=== PATIENT | male | born 1950 | race Hispanic/Latino ===

== ENCOUNTER 2024-01-19 21:33 | Inpatient (IN) | payer OTHER, SELFPAY ==
[2024-01-19] VITALS (14 sets, daily range): BP systolic 112–215; BP diastolic 59–140
[2024-01-19 18:46] LABS: % Basophils 0.5 % (0-2); % Eosinophils 2.5 % (0-6); % Immature Granulocytes 0.5 % (0-0.5); % Lymphocytes 14.5 % (20.5-51.1); Absolute Eosinophils 0.2 10^3/uL (0-0.7); Absolute Lymphocytes 1.2 10^3/uL (1.2-3.4); Absolute Monocytes 0.8 10^3/uL (0.1-0.6); Absolute Neutrophils 6.1 10^3/uL (1.4-6.5); Hematocrit 34.4 % (39.0-52.0); Hemoglobin 11.2 g/dL (13.0-18.0); Mean Corp Hgb Conc. 32.6 g/dL (33.0-37.0); Mean Corpuscular Hgb 27.5 pg (27.0-31.0); Mean Corpuscular Volume 84.5 fL (80.0-94.0); Mean Platelet Volume 9.2 fL (7.4-10.4); Nucleated Red Blood Cells % 0 % (-); Platelet Count 263 10^3/uL (130-400); Red Blood Cell Count 4.07 10^6/uL (4.70-6.10); Red Cell Dist. Width 14.9 % (11.5-14.5); White Blood Cell Count 8.3 10^3/uL (4.8-10.8)
[2024-01-19 18:56] LABS: INR 1.07; PT 13.7 Sec (11.4-14.6)
[2024-01-19 18:59] LABS: ALT (SGPT) 26 U/L (0-50); AST (SGOT) 31 U/L (17-59); Albumin 3.1 g/dl (3.5-5.0); Alkaline Phosphatase 127 U/L (38-126); Blood Urea Nitrogen 21 mg/dl (9-20); Calcium 8.2 mg/dl (8.4-10.2); Carbon Dioxide 27 mmol/L (22-30); Chloride 109 mmol/L (98-107); Glucose 195 mg/dl (70-99); Potassium 4.2 mmol/L (3.5-5.1); Sodium 138 mmol/L (135-145); Total Bilirubin 0.3 mg/dl (0.2-1.3); Total Protein 6.7 g/dl (6.3-8.2); eGFR > 60.00
[2024-01-19] MEDS: LASIX 40 MG IV (19:09)
[2024-01-19] MEDS: NITROSTAT (SUBLINGUAL) 0.400000000000000022 MG SL (19:09)
[2024-01-19 19:10] LABS: Troponin I 0.017 ng/ml
[2024-01-19] MEDS: NITROGLYCERIN PREMIX 250 IV (19:56)
[2024-01-19 20:03] LABS: NT-proBNP 201 pg/ml
--- NOTE | 2024-01-19 21:19 | ED.GENMED ---
History of Present Illness
General
Chief Complaint: Abdominal Pain
Source: patient and physician (Primary physician)
Exam Limitations: none
Time Seen by Provider: 01/19/24 18:32
Nursing documentation reviewed up to this point in time: agreed with
Travel History
Have you had any contact with someone who has COVID-19?: No
Do you have any symptoms of coronavirus? Fever > 100 degrees, chills, cough, shortness of breath, sore throat, loss of taste or smell, muscle aches, or headache?: No
History of Present Illness
History of Present Illness:
73-year-old male with past medical history of hypertension, hyperlipidemia, SIMONE, diabetes who presents to the emergency room for evaluation of shortness of breath, orthopnea also had an episode of chest pain last week. Patient reports that he has
had ongoing significant dyspnea and orthopnea for at least the past few weeks. He says that it has progressed to the point that he has to sit upright to sleep at night due to severe orthopnea. He says that he has to rest after walking short
distances due to his dyspnea. He says that he has had nagging cough. He has noticed swelling of his legs. He says that last week he had an episode of chest discomfort that started rather abruptly�he says he initially was seen at an urgent care
and was told that it might be muscular pain. He then followed up with his primary doctor who was concerned for potential cardiac pain. With the constellation of symptoms and new onset chest pain last week primary physician recommended that he go
to the emergency room for assessment today. He currently denies any chest pain. He has noticed increased swelling in his legs. He has not had any fevers or chills. No GI symptoms. He denies any known cardiac history and says he has never seen a
global sales executive. Denies any recent travel. No history of DVT/PE.
Past History
Past History
ED Past Medical History: None, Cancer, HTN, Hypercholesterolemia and NIDDM
ED Past Surgical History: Orthopedic
Social History
Tobacco: Non-smoker
Alcohol: None
Personal:
Living: with family
Employment: Employed
Family History
Family History: Hypertension
Review of Systems
Review of Systems
All Other Systems: ROS reviewed and negative except as documented in HPI and ROS
Constitutional: Reports fatigue; Denies fever or chills
EENT: Denies sore throat or runny nose
Respiratory: Reports cough, trouble breathing and other (Orthopnea)
Cardiac: Reports chest pain; Denies diaphoresis or palpitations
ABD/GI: Denies abdominal pain, nausea or vomiting
: Denies flank pain
Musculoskeletal: Reports edema; Denies neck pain or back pain
Neurological: Denies dizzy, weakness or numbness
Phy Exam
Physical Exam
Physical Exam:
General: Awake, alert, oriented x3; no acute distress
Head: Normocephalic, atraumatic
Eyes: Conjunctiva normal, sclera anicteric
Throat: Airway intact, handling secretions
Neck: Trachea midline, +JVD
Lungs: Patient has tachypnea, speaking in 4-5 word sentences, sitting upright in the bed; supple pulse ox on room air; he has diffuse bilateral rales
Heart: Regular rate and rhythm, no murmurs, gallops, or rubs
Abd: Soft, non distended, nontender
Neuro: Cranial nerves grossly intact, no gross motor or sensory deficits
Extremities: +2 pitting edema in the lower extremities bilaterally; distal extremities warm well-perfused
Scores
Heart Failure Risk
Heart Failure Risk Score: Yes
History of Stroke or TIA: No
History of intubation for respiratory distress: No
Heart rate on ED arrival >/= 110: No
SaO2 <90% on arrival on room air: No
HR >/=110 during 3min walk test (or too ill to perform test): Yes
ECG has acute ischemic changes: No
Urea >/=12mmol/L (BUN 33.6mg/dL): No
Serum CO2>/=35mmol/L: No
Troponin I or T elevated to [place] Level (0.4mg/dL): No
NT-proBNP >/=5,000ng/L (5,000pg/ml): No
HF Risk Score: 2
Admission Status: MEDIUM RISK 9.2% Consider observation or discharge to home with homecare & f/u visit to PCP/Paradichlorobenzene Tender, or SNF for treatment
Heart Score for Chest Pain Patients
STEMI patient?: Not applicable
Withdrawal Assessment of Alcohol
Withdrawal Assessment Completed?: Not applicable
Course
Orders/Labs/Results
Orders:
Orders
01/19/24 17:54
Electrocardiogram (*1) Urgent
Reason for Study: Chest Pain
EKG- Treatment ONCE
01/19/24 18:36
Complete Blood Count/With Diff Urgent
Comprehensive Metabolic Panel Urgent
NT-proBNP Urgent
Comment: ADD ON
Prothrombin Time Urgent
Troponin I Urgent
01/19/24 18:53
Furosemide [Lasix] 40 mg IV NOW STA
Nitroglycerin Sublingual [Nitrostat (Sublingual)] 0.4 mg SL NOW STA
CR Chest Portable - 1 View Urgent
Comment:
Reason For Exam: SOB, orthopnea
Reason Study Needs to be Portable: Unable to Transport
01/19/24 18:59
Add On- LAB Urgent
Tests Added?: bnp
01/19/24 19:47
Nitroglycerin 100 mg/250 ml [Nitroglycerin Premix] 100 mg in 250 ml IV NOW
Initial dose in mcg/min, then titrate:: 5
Titrate to keep:: SBP < 160 mmHg
Titrate by mcg/min:: 5 mcg/min, may increase by 10 mcg/min if dose > 20 mcg/min
Frequency of titrations (minutes):: every 3-5 minutes
Maximum dose in mcg/min:: 200
Begin to taper infusion when:: Remained at goal for 2hrs
Taper by mcg/min:: 5 mcg/min
Frequency of taper (minutes) if patient maintains goal:: 30
Taper to off?: Yes
If infusion off & no longer maintaining goal:: Contact Provider
Abnormal Lab Results
01/19/24
18:36
RBC 4.07 L 10^6/uL
(4.70-6.10)
Hgb 11.2 L g/dL
(13.0-18.0)
Hct 34.4 L %
(39.0-52.0)
MCHC 32.6 L g/dL
(33.0-37.0)
RDW 14.9 H %
(11.5-14.5)
Absolute Monos (auto) 0.8 H 10^3/uL
(0.1-0.6)
Lymphocytes % 14.5 L %
(20.5-51.1)
Chloride 109 H mmol/L
(98-107)
BUN 21 H mg/dl
(9-20)
Glucose 195 H mg/dl
(70-99)
Calcium 8.2 L mg/dl
(8.4-10.2)
Alkaline Phosphatase 127 H U/L
(38-126)
Albumin 3.1 L g/dl
(3.5-5.0)
01/19/24 18:36
01/19/24 18:36
Vital Signs
Initial and Last Documented VS:
Initial Vital Signs
Temp Pulse Resp BP Pulse Ox
36.9 C 72 16 177/85 98
01/19/24 17:55 01/19/24 17:55 01/19/24 17:55 01/19/24 17:55 01/19/24 17:55
Last Documented Vital Signs
Temp Pulse Resp BP Pulse Ox
36.9 C 78 21 134/65 92
01/19/24 17:55 01/19/24 20:40 01/19/24 19:30 01/19/24 20:40 01/19/24 19:45
MDM/Problems Addressed
Differential Diagnosis Includes:
CHF exacerbation, pneumonia, acute [place], chronic bronchitis, symptomatic anemia
MDM/Problems Addressed:
73-year-old male presents for evaluation of progressive exertional dyspnea and orthopnea, increasing swelling in the legs; sudden episode of nonexertional chest pain last week. Hypertensive on arrival with mild tachypnea otherwise normal vitals.
Physical exam as above. Clinical picture concerning for acute CHF. Plan to place an IV send labs including a CBC and a CMP, troponin and a BNP. Will check a stat chest x-ray and EKG. Will treat with some nitroglycerin for severe hypertension to
start. Will monitor closely reassess after the above.
Initial labs reviewed: CBC shows marginal anemia which is stable. CMP shows random glucose 195 no other clinically significant abnormalities. Troponin negative. proBNP only 201 but patient has morbid obesity which might cause falsely low BNP�his
chest x-ray reviewed by me shows findings consistent with acute CHF and pulmonary edema. Patient remains severely hypertensive to the 190s despite initial nitroglycerin�will start on nitroglycerin infusion for blood pressure control. Will dose
with IV Lasix. Will admit to the hospitalist for continued management. Case discussed with hospitalist for admission for new onset acute CHF and severe hypertension.
Chronic conditions affecting care:
Hypertension, diabetes, hyperlipidemia, obesity
Acute Exacerbation and/or Progression of Chronic Illness:
Acutely hypertensive managed with nitroglycerin
Acute Exacerbation and/or Progression of Chronic Illness: HTN
*Radiology
Radiology exam reviewed: preliminary read by ED provider and radiology read reviewed
*Pulse Oximetry
Patient hypoxic: no
*EKG
Interpreted by ED Provider?: Yes
Heart Rate: 75
Rate: normal
Rhythm: sinus
[place]: right axis deviation
Interval: normal interval
QRS Pattern: left bundle branch block
Ischemia: non-specific ST changes
*Critical Care Note
Total Time (30-74mins, 75-104mins- exclusive of procedures): Not Applicable
Data Reviewed
Review of Other/Old Records Reveals: Labs, Records, Radiology Studies (Prior chest x-ray) and Discharge Summary
Source: patient and physician (Spoke with PCP)
Patient Management
Discussion with other providers: Hospitalist (Discussed with hospitalist), PCP (Discussed with primary physician) and Radiologist (Discussed with radiologist)
Escalation/DeEscalation of care consider admission/obs:
Admission indicated
ED Attending Note
-
Portions of this chart may have been created with voice recognition software.� Occasional wrong word or��sound alike� substitutions may have occurred due to the inherent limitations of voice recognition software.
Discharge Plan
Departure
Patient Disposition: Admit
Date of Disposition: 01/19/24
Time of Disposition: 19:47
Admit to doctor: Mykel
Presentation/result/management discussed w/ accepting MD/DO: Hospitalist
Discharge Problem:
Acute CHF, Hypertension
Prescriptions:
No Action
hydrochlorothiazide 25 MG tablet
25 mg PO DAILY
lisinopril 40 MG tablet
40 mg PO DAILY
atorvastatin 10 MG tablet
10 mg PO QPM
amlodipine 10 MG tablet
10 mg PO DAILY
metformin 500 MG tablet extended release 24 hr
1,000 mg PO HS
latanoprost 1 DROP drops
1 drp BOTH EYES HS
acetaminophen [Tylenol] 325 mg Tablet
650 mg PO Q6HPRN PRN (Reason: mild pain)
cyanocobalamin (vitamin B-12) 1,000 mcg Tablet
1,000 mcg PO DAILY
Referrals:
Macho Gao MD [Family Provider] -
Interventions
Interventions:
*Risk Screen - Suicide Last Done: 01/19/24 17:55
*Neglect/Abuse Screening Last Done: 01/19/24 17:55
ED- Fall Risk Assessment Last Done: 01/19/24 17:55
*ED COVID-19 Vaccine History Last Done: 01/19/24 17:55
[place]-Keijff-Prgrbujeyd Assessment Last Done: 01/19/24 19:07
Discharge Date and Time
Print Language: SLOVAK
--- NOTE | 2024-01-19 21:27 | HPS.HSE ---
Family Physician
-
Family Physician: Macho Gao
Chief Complaint
-
shortness of breath
History of Present Illness
73-year-old Bengali-speaking male past medical history of diabetes, peripheral neuropathy, hypertension, hyperlipidemia, obesity, prostate cancer status post resection, spinal stenosis, gout, presenting with shortness of breath. He states that he
has had shortness of breath for years however shortness of breath has gotten worse in the past few weeks. Shortness of breath is worse with exertion and when he lies down flat. He has also gained more than 20 pounds recently and has increased
lower extreme edema. He has a productive cough. He denies any fevers or chills.
He states that he saw a physician last week for chest pain and was told the chest pain was musculoskeletal. He denies any chest pain at this time. He denies any history of cardiac problems.
Denies any family history of cardiac problems.
He drinks 1-2 beers a week. He denies smoking.
Medical History
Past Medical History
Past Medical History: Reports Other (diabetes, peripheral neuropathy, hypertension, hyperlipidemia, obesity, prostate cancer status post resection, spinal stenosis, gout,)
Past Surgical History: Reports Other (Right finger amputation, prostate surgery)
Social History
Tobacco: Non-smoker
Alcohol: Occasional
Drug: None
Family History
Family History: Not pertinent
Allergies / Home Medications
Allergies reflects when Allergies were last updated in [facility].
Home Medications with original date entered in [facility]
Allergy/Medication List:
Allergies
Allergy/AdvReac Type Severity Reaction Status Date / Time
No Known Allergies Allergy Verified 01/19/24 17:53
Home Medications
hydrochlorothiazide 25 mg tablet 25 mg PO DAILY Fluid retention/Swelling 07/01/14
lisinopril 40 mg tablet 40 mg PO DAILY Blood pressure 07/01/14
amlodipine 10 mg tablet 10 mg PO DAILY Blood pressure 11/29/18
atorvastatin 10 mg tablet 10 mg PO QPM High cholesterol 11/29/18
metformin 500 mg tablet,extended release 24 hr 1,000 mg PO HS Diabetes 11/29/18
latanoprost 0.005 % eye drops 1 drp BOTH EYES HS Eye condition 08/24/20
acetaminophen 325 mg tablet (Tylenol) 650 mg PO Q6HPRN PRN mild pain 01/19/24
cyanocobalamin (vitamin B-12) 1,000 mcg tablet 1,000 mcg PO DAILY 01/19/24
Review of Systems
-
History Source: Patient
A 12 point ROS was completed and negative except as noted: Yes
Constitutional: Reports No Symptoms
EENT: Reports No Symptoms
Respiratory: Reports See HPI
Cardiac: Reports See HPI
Abdomen/GI: Reports No Symptoms
: Reports No Symptoms
Musculoskeletal: Reports No Symptoms
Skin: Reports No Symptoms
Neurological: Reports No Symptoms
Endocrine: Reports No Symptoms
Hematologic/Lymphatic: Reports No Symptoms
Psych: Reports No Symptoms
Physical Exam
Vital Signs
Vital Signs
Temp Pulse Resp BP Pulse Ox
98.5 F 78 21 134/65 92
01/19/24 17:55 01/19/24 20:40 01/19/24 19:30 01/19/24 20:40 01/19/24 19:45
Physical Exam
General: Well Developed, Well Nourished and No Apparent Distress
HEENT: NormoCephalic, Moist mucous membranes and Atraumatic
Respiratory: Clear and Rales
Cardiac: S1/S2, Regular Rhythm and Peripheral Edema; No Murmur or Rub
GI: Soft, Non Tender, Non Distended and Normal Bowel Sounds; No Organomegaly
Rectal: Deferred by Provider
Musculoskeletal: No Clubbing, No Cyanosis and No Edema
Skin: No Rash
Neuro: Nonfocal/grossly intact
Laboratory Results
-
01/19/24 18:36
01/19/24 18:36
Laboratory Results
PT 13.7 Sec (11.4-14.6) 01/19/24 18:36
INR 1.07 01/19/24 18:36
Total Bilirubin 0.3 mg/dl (0.2-1.3) 01/19/24 18:36
AST 31 U/L (17-59) 01/19/24 18:36
ALT 26 U/L (0-50) 01/19/24 18:36
Alkaline Phosphatase 127 U/L (38-126) H 01/19/24 18:36
Troponin I 0.017 ng/ml 01/19/24 18:36
Data Reviewed
-
Lab Data: Labs Reviewed by me
Old Records: Reviewed
Impression/Plan
-
IMPRESSION:
PLAN:
# Acute CHF exacerbation
-Chest x-ray shows cardiomegaly, vague increased opacity in both lungs most consistent with interstitial edema consistent with heart failure
-BNP 200, suppressed due to obesity
-Check I's and O's, daily weights
-40 IV Lasix daily
-Check echo
-Cardiology consulted
# Hypertensive emergency, in the setting of heart failure
-EKG shows normal sinus rhythm, LVH
-Nitroglycerin drip started
-continue amlodipine, HCTZ, lisinopril
# Nonischemic myocardial injury
-Troponin 0.017
-Continue to trend until peak
Type 2 diabetes
-continue metformin
-Insulin sliding scale
History of right fingertip amputation
Peripheral neuropathy
Essential hypertension
Obesity secondary to excess calories
History of prostate cancer status post resection
Hyperlipidemia
Spinal stenosis
Full code
DVT prophylaxis- heparin
Cardiac diet
[2024-01-19] MEDS: XALATAN OPHTHALMIC SOLUTION 1 DROP BOTH EYES (22:45)
[2024-01-19] MEDS: GLUCOPHAGE XR EXTENDED RELEASE 1000 MG PO (22:59)
[2024-01-19 23:08] LABS: Troponin I 0.017 ng/ml
--- NOTE | 2024-01-19 23:08 | PTCARENOTE ---
no delay received. aaox3. nsr. vss. niece at bedside interpreting. nitro gtt @ 20mcg/min. call riley in reach. will monitor.
[2024-01-20] VITALS (14 sets, daily range): BP systolic 132–161; BP diastolic 52–81; BMI 41.6
[2024-01-20 04:32] LABS: % Basophils 0.4 % (0-2); % Eosinophils 2.6 % (0-6); % Immature Granulocytes 0.7 % (0-0.5); % Lymphocytes 15.9 % (20.5-51.1); % Monocytes 9.3 % (1.7-9.3); % Neutrophils 71.1 % (42.2-75.2); Absolute Eosinophils 0.2 10^3/uL (0-0.7); Absolute Immature Granulocytes 0.1 10^3/uL (0-0.05); Absolute Lymphocytes 1.4 10^3/uL (1.2-3.4); Absolute Monocytes 0.8 10^3/uL (0.1-0.6); Absolute Neutrophils 6.4 10^3/uL (1.4-6.5); Hematocrit 33.4 % (39.0-52.0); Hemoglobin 10.8 g/dL (13.0-18.0); Mean Corp Hgb Conc. 32.3 g/dL (33.0-37.0); Mean Corpuscular Hgb 27.3 pg (27.0-31.0); Mean Corpuscular Volume 84.6 fL (80.0-94.0); Mean Platelet Volume 9.2 fL (7.4-10.4); Nucleated Red Blood Cells % 0 % (-); Platelet Count 254 10^3/uL (130-400); Red Blood Cell Count 3.95 10^6/uL (4.70-6.10); Red Cell Dist. Width 14.6 % (11.5-14.5)
[2024-01-20 04:44] LABS: HDL Cholesterol 42 mg/dl; LDL Cholesterol, Calculated 81 mg/dl; Total Cholesterol 144 mg/dl (50-199); Triglyceride 107 mg/dl (10-149); Very Low Density Lipoprotein 21 mg/dl (0-30)
[2024-01-20 04:56] LABS: Troponin I 0.016 ng/ml
[2024-01-20] MEDS: TYLENOL 650 MG PO (06:13)
[2024-01-20] MEDS: ORETIC 25 MG PO (08:04)
[2024-01-20] MEDS: ZESTRIL 40 MG PO (08:04)
[2024-01-20] MEDS: VITAMIN B-12 1000 MCG PO (08:04)
[2024-01-20] MEDS: NORVASC 10 MG PO (08:04)
[2024-01-20] MEDS: HEPARIN 5000 UNITS SC ×2 (08:05→21:38)
[2024-01-20] MEDS: LASIX 40 MG IV ×2 (08:05→17:12)
[2024-01-20 08:18] LABS: Glucose - Point of Care 152 mg/dl (70-99)
--- NOTE | 2024-01-20 08:39 | CON.CAR ---
Addendum entered and electronically signed by Meredith Naik MD 01/20/24 12:31:
I saw and examined the patient.
The Geography Instructor's note was reviewed and I agree with the note.
Comment: Exam consistent with volume overload. He denies chest pain but has dyspnea on exertion.
He presented with acute heart failure of unknown type. Continue diuresis. Await echocardiogram.
EKG abnormal but stable. Troponin 0.022. Multiple cardiovascular risk factors including uncontrolled diabetes.
Continue diuresis
Await echocardiogram
Eventual right and left heart catheterization
Reassess troponin
Diabetes per primary service
Addendum entered and electronically signed by Charleen De Oliveira PA-C 01/20/24 12:12:
called and updated patient's daughter, Jennifer via telephone.
Original Note:
Consultation
Consultation Request
Date/Time Consultation Performed: 01/20/24
Requesting Provider: Dr. Lucero
Performing Provider: Charleen De Oliveira PA-C for Dr. Meredith Naik
Reason for Consultation: CHF, CP
Medical History
-
Chief Complaint: SOB, CP
History of Present Illness:
Patient is a 73 yo Thai speaking male with past medical history of prediabetes, hypertension, hyperlipidemia, peripheral neuropathy, obesity, prostate cancer status postresection who presents to [facility] for evaluation of shortness of
breath and chest discomfort. He was referred here by his primary care physician due to his symptoms. He states his symptoms all started after he had COVID approximately a year ago however acutely worsened over the last several weeks. He
specifically reports orthopnea with improvement with sitting up to sleep. He reports lower extremity edema and weight gain as well as cough. He denies fevers or chills. He denies exertional chest discomfort, however pressure with coughing and
shortness of breath.
PMH:
Prediabetes
HTN
HLD
Peripheral neuropathy
Obesity
Prostate cancer status post resection
Past Medical History
Past Medical History: Other (in HPI)
Social History
Tobacco: Non-Smoker
Alcohol: Occasional
Employment: Not Employed
Allergies / Home Medications
Allergy/AdvReac Type Severity Reaction Status Date / Time
No Known Allergies Allergy Verified 01/19/24 17:53
�Medication �Instructions �Recorded �Confirmed �Type
hydrochlorothiazide 25 mg tablet 25 mg PO DAILY Fluid 07/01/14 01/19/24 History
retention/Swelling
lisinopril 40 mg tablet 40 mg PO DAILY Blood pressure 07/01/14 01/19/24 History
amlodipine 10 mg tablet 10 mg PO DAILY Blood pressure 11/29/18 01/19/24 History
atorvastatin 10 mg tablet 10 mg PO QPM High cholesterol 11/29/18 01/19/24 History
metformin 500 mg tablet,extended 1,000 mg PO HS Diabetes 11/29/18 01/19/24 History
release 24 hr
latanoprost 0.005 % eye drops 1 drp BOTH EYES HS Eye condition 08/24/20 01/19/24 History
acetaminophen 325 mg tablet 650 mg PO Q6HPRN PRN mild pain 01/19/24 01/19/24 History
(Tylenol)
cyanocobalamin (vitamin B-12) 1,000 mcg PO DAILY 01/19/24 01/19/24 History
1,000 mcg tablet
Review of Systems
-
History Source: Patient
All other systems: Negative unless noted
Physical Exam
Vital Signs
Temp Pulse Resp BP Pulse Ox
98.5 F 68 18 146/65 98
01/20/24 07:02 01/20/24 08:04 01/20/24 07:02 01/20/24 08:04 01/20/24 07:02
Lab Results
01/20/24 04:20
Troponin I 0.016 ng/ml 01/20/24 04:20
Lgj-E-Plariomkhsm Pept Cancelled 01/19/24 18:52
Physical Exam
General: No Apparent Distress and Comfortable
HEENT: Normocephalic, Anicteric and Moist Mucous Membranes
Respiratory: Wheezes and Non Labored Respirations
Cardiac: S1/S2 and Regular Rhythm
GI: Soft, Non Tender, Normal Bowel Sounds and Distended
Musculoskeletal: No Clubbing, No Cyanosis and Edema (3+ of B/L LE)
Skin: Warm and Dry
Neuro: AO x 3
Impression / Plan
-
Primary Ore Smelter: none
Assessment:
Presentation with SOB, CP
Acute CHF, unknown type
Abnormal EKG
History of prediabetes, now diabetic by hgbA1c 9.8 on 01/19
HTN
HLD
Peripheral neuropathy
Obesity
Prostate cancer status post resection
Plan:
-Patient is a Thai-speaking male who presents to [facility] for evaluation of shortness of breath and chest pain, worsening over the last several weeks
-He is noted to be grossly volume overloaded in acute decompensated congestive heart failure even though proBNP 201. CXR with evidence of CHF as well
-Diuresis with IV Lasix - stop OP HCTZ and increase lasix dose to 40mg BID
-Cr stable
-check echo
-although trops are detectable but within normal range, his EKG is abnormal with inferior T wave abnormality. will need L/RHC when optimized from volume standpoint
-with 10 beat run of NSVT overnight. will initiate toprol 25mg daily. replete K. mag stable. continue OP lisinopril and norvasc
-LDL 81 on lipitor 10mg QPM, will increase dose to 20mg
-further recommendations based on results of echo/cath
-He has a history of prediabetes. By hemoglobin A1c this admission he is now diabetic at 9.8%. Consult diabetic education. For both CHF and diabetes, would plan to add Jardiance if cost affordable, will have case management assess cost
-d/w nursing
Data Reviewed
-
EKG: Tracing Personally Visualized and interpreted
Radiology: Report Reviewed by me
Labs: Labs Reviewed by me
Old Records: Reviewed
[2024-01-20 09:09] LABS: Glycohemoglobin (HgbA1c) 9.8 % (4.0-5.6)
[2024-01-20] MEDS: NOVOLOG FLEXPEN-LOW RESISTANCE 1 UNITS SC (09:12)
[2024-01-20 09:14] LABS: Blood Urea Nitrogen 19 mg/dl (9-20); Calcium 8.5 mg/dl (8.4-10.2); Carbon Dioxide 26 mmol/L (22-30); Chloride 109 mmol/L (98-107); Glucose 136 mg/dl (70-99); Magnesium 2.3 mg/dl (1.6-2.3); Potassium 3.8 mmol/L (3.5-5.1); Sodium 138 mmol/L (135-145); eGFR > 60.00
[2024-01-20] MEDS: KCL 20 MEQ PO (11:05)
[2024-01-20] MEDS: TOPROL XL 25 MG PO (11:06)
--- NOTE | 2024-01-20 11:11 | PTCARENOTE ---
Pt received from night clerk auditor RN. Ox3 and appropriate, Italian speaking only. NSR on tele, + pulses, +2 LE edema. Pt states he feels as though he cannot catch his breath, orthopneic. Breathing much improved after morning Lasix. Pt using urinal,
complains of frequency and difficulty using urinal which he often misses. Ate 100% of breakfast. Pt complaining of generalized body pain with numbness/ tingling in the legs. This improved after receiving tylenol. Call riley within reach. Pt makes
needs known.
--- NOTE | 2024-01-20 11:16 | W.PN.HOSP.TC ---
Today's Communication/Plan
-
Ultrasound of the lower extremity
Increase metformin to 1000 mg twice daily
Add 50 mg Januvia
Check pricing for SGLT2 inhibitors
Diuresis
Echo
May need heart catheterization minute
Assessment / Plan
Assessment / Plan
73-year-old male presented to [facility] because of shortness of breath and chest discomfort. He also has had bilateral lower extremity edema and weight gain
On examination awake alert
Has pain in the legs and also mild shortness of breath with ambulation.
Cardiovascular system S1-S2 appreciated
Chest decreased breath sounds, few rales
Bilateral lower extremity edema pitting-4+
# Acute CHF
Type unclear-check echo
T inversions in the EKG and also nonsustained VT
Continue diuresis with IV Lasix
Lower extremity Dopplers to rule out DVT
Beta-jin started
Follow electrolytes and replace as needed
Continue lisinopril.
Cardiology evaluation appreciated
# Diabetes-hemoglobin A1c 9.8
Continue metformin, add SGLT2 inhibitors if covered
Add Januvia
Increase metformin to thousand twice daily-if ejection fraction is very low may need to stop this completely and switch to insulin.
Diabetic education, dietary education
Weight loss will also help
# Bhftydvusvlc-uxnq-[id number] and lisinopril to be continued
Stop amlodipine if possible with edema.
Off nitroglycerin drip
# Nonischemic myocardial injury
# Hyperlipidemia-continue statin
# Anemia-check iron studies
# Sleep apnea Suspected. Patient may need to get sleep study as outpatient
# History of prostate cancer status post resection
# Glaucoma-continue latanoprost eyedrops
# Obesity
# History of right fingertip amputation.Peripheral neuropathy
# Spinal stenosis
# DVT prophylaxis-Lovenox
# Full code
Discussed with nursing
Anticipated Discharge: > 48 hours
Subjective/Interval History
-
Date of Service: January 20, 2024
Objective Data
-
Labs:
Laboratory Results
01/20/24 01/20/24
04:20 08:01
WBC 9.0
Hgb 10.8 L
Hct 33.4 L
Plt Count 254
Sodium 138
Potassium 3.8
Chloride 109 H
Carbon Dioxide 26
BUN 19
Creatinine 0.8
Glucose 136 H
Calcium 8.5
Vital Signs:
Vital Signs
Temp Pulse Resp BP Pulse Ox
98.5 F 78 18 142/69 98
01/20/24 07:02 01/20/24 11:06 01/20/24 07:02 01/20/24 11:06 01/20/24 10:51
I&O
01/19/24 01/20/24 01/21/24
06:59 06:59 06:59
Output Total 625 / 625
Balance -625 / -625
[2024-01-20 11:32] LABS: Glucose - Point of Care 230 mg/dl (70-99)
[2024-01-20] MEDS: NOVOLOG FLEXPEN-LOW RESISTANCE 3 UNITS SC (12:00)
[2024-01-20 12:08] LABS: Troponin I 0.022 ng/ml
[2024-01-20 12:09] LABS: Iron 45 ug/dl (49-181)
[2024-01-20 12:18] LABS: Percent Saturation 14 % (20-50); Total Iron Binding Capacity 308 ug/dl (261-462)
[2024-01-20] MEDS: JANUVIA 50 MG PO (13:38)
[2024-01-20 14:00] LABS: Ferritin 88.2 ng/ml (17.9-464.0)
[2024-01-20 14:15] LABS: Vitamin B12 > 1000 pg/ml (239-931)
[2024-01-20] MEDS: NOVOLOG FLEXPEN-LOW RESISTANCE SC (17:12)
[2024-01-20] MEDS: LIPITOR 20 MG PO (17:12)
[2024-01-20 17:13] LABS: Glucose - Point of Care 130 mg/dl (70-99)
[2024-01-20 17:45] LABS: Troponin I 0.015 ng/ml
[2024-01-20] MEDS: GLUCOPHAGE XR EXTENDED RELEASE 1000 MG PO (21:38)
[2024-01-20] MEDS: XALATAN OPHTHALMIC SOLUTION 1 DROP BOTH EYES (21:38)
[2024-01-20 21:39] LABS: Glucose - Point of Care 163 mg/dl (70-99)
[2024-01-21] VITALS (7 sets, daily range): BP systolic 108–154; BP diastolic 48–71; BMI 40.4
--- NOTE | 2024-01-21 01:21 | PTCARENOTE ---
Patient ambulating self in room. Appears FREDERICK and tachypnea at times. Lungs w/ crackles in bases and sating 96-97% RA. Tele monitor remains SR, HR in the 60-70s. Denies any pain. Bilateral lower extremity w/ +3 pitting edema. CHF packet given in pts
primary language. This RN instructed pt to void in either urinal or hat in bathroom for accurate output. Pt nodded head and stated 'ok'. Call riley in reach.
[2024-01-21 03:38] LABS: Hematocrit 35.6 % (39.0-52.0); Hemoglobin 11.7 g/dL (13.0-18.0); Mean Corp Hgb Conc. 32.9 g/dL (33.0-37.0); Mean Corpuscular Hgb 27.4 pg (27.0-31.0); Mean Corpuscular Volume 83.4 fL (80.0-94.0); Platelet Count 275 10^3/uL (130-400); Red Blood Cell Count 4.27 10^6/uL (4.70-6.10); Red Cell Dist. Width 14.9 % (11.5-14.5); White Blood Cell Count 9.5 10^3/uL (4.8-10.8)
[2024-01-21 04:00] LABS: Blood Urea Nitrogen 26 mg/dl (9-20); Calcium 8.7 mg/dl (8.4-10.2); Carbon Dioxide 29 mmol/L (22-30); Chloride 103 mmol/L (98-107); Estimated Creatinine Clearance 77 ml/min; Glucose 126 mg/dl (70-99); Potassium 3.8 mmol/L (3.5-5.1); Sodium 137 mmol/L (135-145); eGFR > 60.00
[2024-01-21 08:45] LABS: Glucose - Point of Care 117 mg/dl (70-99)
[2024-01-21] MEDS: NOVOLOG FLEXPEN-LOW RESISTANCE SC ×2 (08:46→16:56)
[2024-01-21] MEDS: NORVASC 10 MG PO (08:46)
[2024-01-21] MEDS: VITAMIN B-12 1000 MCG PO (08:46)
[2024-01-21] MEDS: ZESTRIL 40 MG PO (08:47)
[2024-01-21] MEDS: JANUVIA 50 MG PO (08:47)
[2024-01-21] MEDS: HEPARIN 5000 UNITS SC ×2 (08:47→20:33)
[2024-01-21] MEDS: GLUCOPHAGE XR EXTENDED RELEASE 1000 MG PO ×2 (08:47→21:39)
[2024-01-21] MEDS: LASIX 40 MG IV ×3 (08:48→17:01)
[2024-01-21] MEDS: TOPROL XL 25 MG PO (08:48)
[2024-01-21] MEDS: FEOSOL 325 MG PO (08:48)
--- NOTE | 2024-01-21 09:53 | W.PN.HOSP.TC ---
Today's Communication/Plan
-
Wolfgang bandages to lower extremity
Diuresis
Assessment / Plan
Assessment / Plan
73-year-old male presented to [facility] because of shortness of breath and chest discomfort. He also has had bilateral lower extremity edema and weight gain
On examination awake alert
Has pain in the legs and also mild shortness of breath with ambulation.
Cardiovascular system S1-S2 appreciated
Chest decreased breath sounds, few rales
Bilateral lower extremity edema pitting-4+
Has a friend at bedside patient wants him to translate
# Acute CHF
Type unclear-check echo
T inversions in the EKG and also nonsustained VT
Continue diuresis with IV Lasix
Lower extremity Dopplers no DVT
Beta-jin started
Follow electrolytes and replace as needed
Continue lisinopril.
Cardiology evaluation appreciated
Weight is coming down
# Diabetes-hemoglobin A1c 9.8
Continue metformin, add SGLT2 inhibitors if covered
Added Januvia
Increased metformin to thousand twice daily-if ejection fraction is very low may need to stop this completely and switch to insulin.
Diabetic education, dietary education
Weight loss will also help
# Cxseyneisnvl-gecw-ebpdqrj and lisinopril to be continued
Stop amlodipine if possible with edema.
Off nitroglycerin drip
# Nonischemic myocardial injury
# Hyperlipidemia-continue statin
# Anemia-mild iron deficiency. P.o. iron ordered outpatient colonoscopy
# Sleep apnea Suspected. Patient may need to get sleep study as outpatient
# History of prostate cancer status post resection
# Glaucoma-continue latanoprost eyedrops
# Obesity
# History of right fingertip amputation.Peripheral neuropathy
# Spinal stenosis
# DVT prophylaxis-Lovenox
# Full code
Discussed with nursing
Discussed with patient's friend at bedside
Called Step daughter per D/W Pt Jennifer Vásquez [phone] left message. [place]'s [place] now.
Anticipated Discharge: > 48 hours
Subjective/Interval History
-
Date of Service: January 21, 2024
Objective Data
-
Labs:
Laboratory Results
01/21/24
03:27
WBC 9.5
Hgb 11.7 L
Hct 35.6 L
Plt Count 275
Sodium 137
Potassium 3.8
Chloride 103
Carbon Dioxide 29
BUN 26 H
Creatinine 0.9
Glucose 126 H
Calcium 8.7
Vital Signs:
Vital Signs
Temp Pulse Resp BP Pulse Ox
98.1 F 63 22 154/71 95
01/21/24 08:16 01/21/24 08:48 01/21/24 08:16 01/21/24 08:48 01/21/24 08:16
I&O
01/20/24 01/21/24 01/22/24
06:59 06:59 06:59
Intake Total 360 / 360
Output Total 1025 / 1025
Balance -665 / -665
--- NOTE | 2024-01-21 09:55 | W.PN.CARDCBS ---
Today's Communication / Plan
-
Continue diuresis I have given him an extra 40 mg of IV Lasix
Look into cost of SGLT2 inhibitor, await case management
Replete potassium
Check magnesium level
Await echo on Monday
Continue heparin
Impression / Plan
-
Primary Tape Recording Machine Operator: none
Assessment:
Presentation with SOB, CP
Acute CHF, unknown type (echo pending)
Abnormal EKG
History of prediabetes, now diabetic by hgbA1c 9.8 on 01/19
HTN
HLD
Peripheral neuropathy
Obesity
Prostate cancer status post resection
Plan:
-He is noted to be grossly volume overloaded in acute decompensated congestive heart failure even though proBNP 201. CXR with evidence of CHF as well
-Diuresis with IV Lasix -I have given him an extra 40 mg of IV Lasix today. He is decreasing about 7 pounds today but continues with symptoms of PND and orthopnea.
-Cr stable
-Will give dose of potassium. Follow electrolytes. Magnesium level ordered.
-Plan for echo on Monday
-although trops are detectable but within normal range, his EKG is abnormal with inferior T wave abnormality. will need L/RHC when optimized from volume standpoint
-Telemetry stable. With sinus rhythm and short run of PAT. I have changed Toprol XL to carvedilol which should be better for his hypertension.
-LDL 81 on lipitor 10mg QPM, this admission has been increased to 20mg
-Further recommendations based on results of echo/cath
-He has a history of prediabetes. By hemoglobin A1c this admission he is now diabetic at 9.8%. Consult diabetic education. For both CHF and diabetes, would plan to add Jardiance if cost affordable, will have case management assess cost
-d/w nursing and hospitalist physician
Patient is a Kyrgyz-speaking male who presents to [facility] for evaluation of shortness of breath and chest pain, worsening over the last several weeks
Progress Note - Tape Recording Machine Operator
Subjective
Date of Service: January 21, 2024
He has edema and dyspnea. He has PND and orthopnea. He denies chest pain.
His friend is here who translates in addition to my speaking with him
Objective
Labs:
01/21/24 03:27
01/21/24 03:27
Labs
Hgb 11.7 g/dL (13.0-18.0) L 01/21/24 03:27
Hct 35.6 % (39.0-52.0) L 01/21/24 03:27
Plt Count 275 10^3/uL (130-400) 01/21/24 03:27
PT 13.7 Sec (11.4-14.6) 01/19/24 18:36
INR 1.07 01/19/24 18:36
Sodium 137 mmol/L (135-145) 01/21/24 03:27
Potassium 3.8 mmol/L (3.5-5.1) 01/21/24 03:27
BUN 26 mg/dl (9-20) H 01/21/24 03:27
Creatinine 0.9 mg/dL (0.7-1.3) 01/21/24 03:27
Glucose 126 mg/dl (70-99) H 01/21/24 03:27
Troponins
01/19/24 01/19/24 01/20/24
18:36 22:25 04:20
Troponin I 0.017 0.017 0.016
01/20/24 01/20/24
11:27 17:05
Troponin I 0.022 D 0.015 D
Vital Signs and I&O:
Vital Signs
Temp Pulse Resp BP Pulse Ox
98.1 F 63 22 154/71 95
01/21/24 08:16 01/21/24 08:48 01/21/24 08:16 01/21/24 08:48 01/21/24 08:16
Vital Signs
Temp Pulse Resp BP Pulse Ox
98.1 F 63 22 154/71 95
01/21/24 08:16 01/21/24 08:48 01/21/24 08:16 01/21/24 08:48 01/21/24 08:16
Intake & Output
01/19/24 01/20/24 01/21/24 01/22/24
06:59 06:59 06:59 06:59
Intake Total 360 / 360
Output Total 1025 / 1025
Balance -665 / -665
Physical Exam
Physical Exam
General: Well developed, well nourished in NAD.
Neck: JVD to the mandible
Heart: Distant heart sounds. Regular.
Lungs: Decreased breath sounds at the bases with few crackles
Abdomen: distended.
Extremities: No clubbing, cyanosis and +2-3 edema bilaterally.
Neuro: Grossly nonfocal, awake, alert
[2024-01-21 10:18] LABS: Magnesium 2.3 mg/dl (1.6-2.3)
[2024-01-21] MEDS: KCL 40 MEQ PO (11:14)
[2024-01-21] MEDS: COREG 6.25 MG PO ×2 (11:14→20:33)
[2024-01-21 11:56] LABS: Glucose - Point of Care 150 mg/dl (70-99)
[2024-01-21] MEDS: NOVOLOG FLEXPEN-LOW RESISTANCE 1 UNITS SC (12:30)
[2024-01-21] MEDS: FLUSH (NSS) 1 FLUSH IV (12:31)
[2024-01-21 16:47] LABS: Glucose - Point of Care 139 mg/dl (70-99)
[2024-01-21] MEDS: LIPITOR 20 MG PO (17:01)
[2024-01-21] MEDS: TYLENOL 650 MG PO (17:05)
--- NOTE | 2024-01-21 18:16 | PTCARENOTE ---
Assumed care of pt this am after report and walking rounds. Pt appears dyspneic at rest and on exertion. PT sitting OOB in chair and reported that he felt better sitting up in chair rather than in bed. Pt is hungarian speaking and DH Telephone
Broom Handle Dipper utilized for communication for medical communication. A friend and a Niece visited throughout the day and assisted with casual conversation. Pt educated through ONLINE fitness trainer and Slovenian printouts regarding limiting fluid intake,
monitoring sodium intake, daily weight and diuretics and change in med from Toprol to Coreg. Pt continues to need reeducating on intake, friend brought in bottles of vitamin water and salty snacks. This RN reviewed the importance of tracking intake
and output to assure pt healthy options. All are in agreement to review food/drink items with staff. Pt is independent in room and to BR, self care for Hygiene. Gait is low steady, bilateral lower pedal edema +3, lacie wraps applied to bilateral
lowers after explained by fitness trainer. Pt verbalizes understanding and agreement to wraps. Bilateral lower extremity PVD color, rt lower with small fluid filled blister noted on anterior brenner. Lasix dose increased, toprol dc's and Coreg started. Pt
pleasant and cooperative.
--- NOTE | 2024-01-21 18:31 | PTCARENOTE ---
Patient complains of left anterior shoulder pain, he cannot describe it but admits to it is intermittent. p.o. tylenol given and effective to resolve pain
[2024-01-21 21:39] LABS: Glucose - Point of Care 193 mg/dl (70-99)
[2024-01-21] MEDS: XALATAN OPHTHALMIC SOLUTION 1 DROP BOTH EYES (21:40)
[2024-01-22] VITALS (7 sets, daily range): BP systolic 126–139; BP diastolic 43–88; BMI 40.2
--- NOTE | 2024-01-22 01:17 | PTCARENOTE ---
Tele remains SR-Sinus rupal, HR in the 50-60's. Sating 93-96% RA, and appears FREDERICK. Pt has an occasional STUDIO OPERATION ENGINEER cough. Lungs w/ fine crackles in bases. Compression lacie wraps removed at HS. Bilateral lower legs w/ +2 pitting edema. Bilateral DP pulses
palpable. POC on going, call riley in reach.
[2024-01-22 04:43] LABS: Hematocrit 37.7 % (39.0-52.0); Hemoglobin 11.9 g/dL (13.0-18.0); Mean Corp Hgb Conc. 31.6 g/dL (33.0-37.0); Mean Corpuscular Hgb 27.4 pg (27.0-31.0); Mean Corpuscular Volume 86.9 fL (80.0-94.0); Mean Platelet Volume 9.2 fL (7.4-10.4); Platelet Count 277 10^3/uL (130-400); Red Blood Cell Count 4.34 10^6/uL (4.70-6.10); Red Cell Dist. Width 14.7 % (11.5-14.5); White Blood Cell Count 8.1 10^3/uL (4.8-10.8)
[2024-01-22 05:12] LABS: Blood Urea Nitrogen 34 mg/dl (9-20); Calcium 8.9 mg/dl (8.4-10.2); Carbon Dioxide 26 mmol/L (22-30); Chloride 105 mmol/L (98-107); Estimated Creatinine Clearance 70 ml/min; Glucose 160 mg/dl (70-99); Potassium 3.9 mmol/L (3.5-5.1); Sodium 138 mmol/L (135-145); eGFR > 60.00
[2024-01-22] MEDS: ZESTRIL 40 MG PO (08:11)
[2024-01-22] MEDS: COREG 6.25 MG PO ×2 (08:17→19:21)
[2024-01-22] MEDS: VITAMIN B-12 1000 MCG PO (08:17)
[2024-01-22] MEDS: HEPARIN 5000 UNITS SC ×2 (08:17→19:21)
[2024-01-22] MEDS: FEOSOL 325 MG PO (08:17)
[2024-01-22] MEDS: GLUCOPHAGE XR EXTENDED RELEASE 1000 MG PO ×2 (08:17→19:21)
[2024-01-22] MEDS: JANUVIA 50 MG PO (08:17)
[2024-01-22] MEDS: NORVASC 10 MG PO (08:17)
[2024-01-22] MEDS: LASIX 40 MG IV ×2 (08:18→15:42)
[2024-01-22 09:00] LABS: Glucose - Point of Care 120 mg/dl (70-99)
[2024-01-22] MEDS: NOVOLOG FLEXPEN-LOW RESISTANCE SC ×2 (09:24→12:19)
--- NOTE | 2024-01-22 10:18 | W.PN.HOSP.TC ---
Today's Communication/Plan
-
Diuresis
ECHO
Assessment / Plan
Assessment / Plan
73-year-old male presented to [facility] because of shortness of breath and chest discomfort. He also has had bilateral lower extremity edema and weight gain
On examination awake alert
Has pain in the legs and also mild shortness of breath with ambulation.
Cardiovascular system S1-S2 appreciated
Chest decreased breath sounds, few rales
Bilateral lower extremity edema pitting-4+
used saddle mechanic phone
# Acute CHF
Type unclear-check echo
T inversions in the EKG and also nonsustained VT
Continue diuresis with IV Lasix
weight coming down
Lower extremity Dopplers no DVT
Beta-jin started
Follow electrolytes and replace as needed
Continue lisinopril.
# Diabetes-hemoglobin A1c 9.8
Continue metformin, add SGLT2 inhibitors if covered
Added Januvia
Increased metformin to thousand twice daily-if ejection fraction is very low may need to stop this completely and switch to insulin.
Diabetic education, dietary education
Weight loss will also help
# Oveorrekowcu-bwru-ynpfvao and lisinopril to be continued
Stop amlodipine if possible with edema.
Off nitroglycerin drip
# Nonischemic myocardial injury
# Hyperlipidemia-continue statin
# Anemia-mild iron deficiency. P.o. iron ordered outpatient colonoscopy
# Sleep apnea Suspected. Patient may need to get sleep study as outpatient
# History of prostate cancer status post resection
# Glaucoma-continue latanoprost eyedrops
# Obesity
# History of right fingertip amputation.Peripheral neuropathy
# Spinal stenosis
# DVT prophylaxis-Lovenox
# Full code
Discussed with nursing
Called Step daughter per D/W Pt Jennifer Freitaslisandro [phone] left message. [place]'s is [place] now.
Anticipated Discharge: 24 - 48 hours
Subjective/Interval History
-
Date of Service: January 22, 2024
Objective Data
-
Labs:
Laboratory Results
01/22/24
04:24
WBC 8.1
Hgb 11.9 L
Hct 37.7 L
Plt Count 277
Sodium 138
Potassium 3.9
Chloride 105
Carbon Dioxide 26
BUN 34 H
Creatinine 1.0
Glucose 160 H
Calcium 8.9
Vital Signs:
Vital Signs
Temp Pulse Resp BP Pulse Ox
98.5 F 69 18 139/63 93
01/22/24 07:11 01/22/24 09:00 01/22/24 07:11 01/22/24 08:11 01/22/24 07:11
I&O
01/21/24 01/22/24 01/23/24
06:59 06:59 06:59
Intake Total 360 / 360 1180 / 1180
Output Total 1025 / 1025 2375 / 2375 700 / 700
Balance -665 / -665 -1195 / -1195 -700 / -700
--- NOTE | 2024-01-22 11:43 | W.PN.CARDCBS ---
Addendum entered and electronically signed by Ilsa Lowery PA-C 01/22/24 16:44:
Called and left a message for patient's daughter, Nirmala, to give her an update. Asked her to call me back via the hospital ssn/ssbn weapons equipment operator or the office number.
Original Note:
Today's Communication / Plan
-
Continues with volume overload. Continue with IV Lasix. I have given him an extra 60 mg of IV Lasix today 01/22/2024
Continue to monitor chemistry.
Eventually when more euvolemic need LHC/RHC
Atorvastatin increased to 40mg
Will add SGLT2 inhibitor. Case management finds this to be affordable.
Impression / Plan
-
Primary Compound Worker: none
Assessment:
Presentation with SOB, CP
Acute CHF, with preserved ejection fraction
Abnormal EKG
History of prediabetes, now diabetic by hgbA1c 9.8 on 01/19
HTN
HLD
Peripheral neuropathy
Obesity
Prostate cancer status post resection
Echocardiogram 01/22/2024: Ejection fraction 55 to 60%. Mild LVH. Normal right ventricle. Mitral valve sclerosis without stenosis or regurgitation. Mild aortic valve stenosis with peak/mean gradient 35/17 mmHg and mild AI. No TR.
Plan:
-He is noted to be grossly volume overloaded in acute decompensated congestive heart failure even though proBNP 201. CXR with evidence of CHF as well
-Diuresis with IV Lasix -I have given him an extra 60 mg of IV Lasix today 01/22/2024 (extra 40 mg 01/21/2024). Weight continues to slowly decrease. Still with significant edema and Wolfgang wraps to legs
-Creatinine stable
-Potassium and magnesium stable. Continue to follow.
-although trops are detectable but within normal range, his EKG is abnormal with inferior T wave abnormality. will need LHC/RHC when optimized from volume standpoint
-Telemetry stable. With sinus rhythm and prior short run of PAT. on 01/21/2024 I changed Toprol XL to carvedilol which should be better for his hypertension.
-LDL 81 on lipitor 10mg QPM, this admission has been increased to 40mg
-Further recommendations based on results of cardiac catheterization.
-He has a history of prediabetes. By hemoglobin A1c this admission he is now diabetic at 9.8%. Consult diabetic education and defer to primary service. For both CHF and diabetes, will add SGLT2 inhibitor. Case management finds this to be
affordable.
I did use [employer] chief unit forester during our interview today.
Patient is a Guinean-speaking male who presents to [facility] for evaluation of shortness of breath and chest pain, worsening over the last several weeks
Progress Note - Compound Worker
Subjective
Date of Service: January 22, 2024
Still with lower extremity edema and shortness of breath with PND and orthopnea.
Objective
Labs:
01/22/24 04:24
01/22/24 04:24
Labs
Hgb 11.9 g/dL (13.0-18.0) L 01/22/24 04:24
Hct 37.7 % (39.0-52.0) L 01/22/24 04:24
Plt Count 277 10^3/uL (130-400) 01/22/24 04:24
PT 13.7 Sec (11.4-14.6) 01/19/24 18:36
INR 1.07 01/19/24 18:36
Sodium 138 mmol/L (135-145) 01/22/24 04:24
Potassium 3.9 mmol/L (3.5-5.1) 01/22/24 04:24
BUN 34 mg/dl (9-20) H 01/22/24 04:24
Creatinine 1.0 mg/dL (0.7-1.3) 01/22/24 04:24
Glucose 160 mg/dl (70-99) H 01/22/24 04:24
Troponins
05/12/0901/19/24 01/20/24
18:36 22:25 04:20
Troponin I 0.017 0.017 0.016
01/20/24 01/20/24
11:27 17:05
Troponin I 0.022 D 0.015 D
Vital Signs and I&O:
Vital Signs
Temp Pulse Resp BP Pulse Ox
98.5 F 69 18 139/63 96
01/22/24 07:11 01/22/24 09:00 01/22/24 07:11 01/22/24 08:11 01/22/24 10:55
Vital Signs
Temp Pulse Resp BP Pulse Ox
98.5 F 69 18 139/63 96
01/22/24 07:11 01/22/24 09:00 01/22/24 07:11 01/22/24 08:11 01/22/24 10:55
Intake & Output
01/20/24 01/21/24 01/22/24 01/23/24
06:59 06:59 06:59 06:59
Intake Total 360 / 360 1180 / 1180
Output Total 1025 / 1025 2375 / 2375 700 / 700
Balance -665 / -665 -1195 / -1195 -700 / -700
Physical Exam
Physical Exam
General: Well developed, well nourished in NAD.
Heart: Distant heart sounds non displaced PMI, RRR, no murmurs, No S3, S4, no rubs.
Lungs: Crackles at the bases bilateral
Abdomen: distended.
Extremities: No clubbing, cyanosis and +1-2 edema bilaterally, legs wrapped.
Neuro: Grossly nonfocal, awake, alert
[2024-01-22] MEDS: LASIX 60 MG IV (12:02)
[2024-01-22] MEDS: FARXIGA 10 MG PO (12:15)
[2024-01-22 12:19] LABS: Glucose - Point of Care 147 mg/dl (70-99)
[2024-01-22 12:57] LABS: TSH Reflex To Free T4 1.49 uIU/ml (0.47-4.68)
--- NOTE | 2024-01-22 14:11 | PTCARENOTE ---
report recieved from nightshift RN. pt resting comfortable, AAOX3 primarily indian speaking with some turkish, computer numerical control grinder used without difficulty. NSR/SB on telemetry heart rate 50-70s. pulses palpable. +2 pitting edema in lower extremities. lacie
wrap applied to lower extremities. pt on room air, sat 96%. active bowel sounds. voiding in bathroom without difficulty. pt updated on plan of care. see worklist for full nursing assessment and interventions.
--- NOTE | 2024-01-22 15:13 | CM ---
Chart reviewed. Patient is independent of ADLS, lives with his in a 1 STH, 3-4 SAMRA, 0 DME. Patient is Sami speaking. I spoke to the patient's daughter, Jennifer [phone]. Plan is for the patient to return home. CM to follow
[2024-01-22 17:29] LABS: Glucose - Point of Care 171 mg/dl (70-99)
[2024-01-22] MEDS: NOVOLOG FLEXPEN-LOW RESISTANCE 1 UNITS SC (17:33)
[2024-01-22] MEDS: LIPITOR 40 MG PO (17:33)
[2024-01-22] MEDS: TYLENOL 650 MG PO (19:20)
--- NOTE | 2024-01-22 20:00 | PTCARENOTE ---
pt reassessed. pt ambulating in room independently. removed LISA compression from legs, pt with +2 pitting edema. SR on telemetry heart rate in 80s. pt voiding large amounts of clear yellow urine in bathroom. no changes in assessment noted.
[2024-01-22] MEDS: XALATAN OPHTHALMIC SOLUTION 1 DROP BOTH EYES (21:35)
[2024-01-22 21:40] LABS: Glucose - Point of Care 159 mg/dl (70-99)
--- NOTE | 2024-01-23 02:43 | PTCARENOTE ---
Assumed care of patient at 2300, no complaints at that time. Sleeping at present. SB, SR on the monitor.
[2024-01-23 05:13] VITALS: BP 139/73
[2024-01-23 06:30] LABS: Hematocrit 37.2 % (39.0-52.0); Hemoglobin 11.8 g/dL (13.0-18.0); Mean Corp Hgb Conc. 31.7 g/dL (33.0-37.0); Mean Corpuscular Hgb 27.6 pg (27.0-31.0); Mean Corpuscular Volume 86.9 fL (80.0-94.0); Mean Platelet Volume 9.7 fL (7.4-10.4); Platelet Count 295 10^3/uL (130-400); Red Blood Cell Count 4.28 10^6/uL (4.70-6.10); White Blood Cell Count 7.9 10^3/uL (4.8-10.8)
[2024-01-23 06:47] LABS: Blood Urea Nitrogen 33 mg/dl (9-20); Calcium 8.4 mg/dl (8.4-10.2); Carbon Dioxide 28 mmol/L (22-30); Chloride 106 mmol/L (98-107); Estimated Creatinine Clearance 70 ml/min; Glucose 106 mg/dl (70-99); Potassium 3.8 mmol/L (3.5-5.1); Sodium 139 mmol/L (135-145); eGFR > 60.00
[2024-01-23 06:59] VITALS: BP 134/70
[2024-01-23 07:02] LABS: Glucose - Point of Care 109 mg/dl (70-99)
[2024-01-23] MEDS: NOVOLOG FLEXPEN-LOW RESISTANCE SC ×3 (07:31→17:14)
--- NOTE | 2024-01-23 09:00 | W.PN.CARDCBS ---
Addendum entered and electronically signed by Troy Godinez MD 01/23/24 12:21:
I saw and examined the patient.
The THROUGH FREIGHT ENGINEER or PA's note was reviewed and I agree with the note.
Comment: General: Well developed, well nourished in NAD.
Neck: Supple, no JVD, HJR, carotids +2 B/L, no bruits bilaterally.
Heart: Non displaced PMI, RRR, no murmurs, No S3, S4, no rubs.
Lungs: Clear to auscultation bilaterally, no wheeze, rhonchi, rubs bilaterally,
normal expiratory phase.
Extremities: No clubbing, cyanosis or edema bilaterally.
Neuro: Grossly nonfocal, awake, alert and oriented x3.
For right and left heart cath in a.m. Continue IV Lasix. Used google translate to discuss with pt
Original Note:
Today's Communication / Plan
-
continue IV lasix diuresis
plan for L/RHC in AM
Impression / Plan
-
Primary Drawer In Hand: none
PCP: Dr. Carnes
Assessment:
Presentation with SOB, CP
Acute CHF, with preserved ejection fraction
Abnormal EKG
History of prediabetes, now diabetic by hgbA1c 9.8 on 01/19
HTN
HLD
Peripheral neuropathy
Obesity
Prostate cancer status post resection
Echocardiogram 01/22/2024: Ejection fraction 55 to 60%. Mild LVH. Normal right ventricle. Mitral valve sclerosis without stenosis or regurgitation. Mild aortic valve stenosis with peak/mean gradient 35/17 mmHg and mild AI. No TR.
Plan:
-Patient presented with chest pain and shortness of breath. Found to be in acute decompensated congestive heart failure, although proBNP 201
-Continue diuresis with IV Lasix. He is responding well with continued decline in weight.
-Echo with preserved EF, mild /AI
-EKG was abnormal upon arrival. Troponins detectable but within normal range
-Will plan for left and right heart cath in a.m. Creatinine remains stable
-Continue Coreg, Norvasc, lisinopril
-LDL 81. Continue Lipitor, dose increased this admission
-He has a history of prediabetes. By hemoglobin A1c this admission he is now diabetic at 9.8%. Consult diabetic education and defer to primary service. For both CHF and diabetes, Ubaldo added.
-I used Google translate during our interview today.
Progress Note - Drawer In Hand
Subjective
Date of Service: January 23, 2024
Reports breathing is improving. No chest pain overnight
Objective
Labs:
01/23/24 05:22
01/23/24 05:22
Labs
Hgb 11.8 g/dL (13.0-18.0) L 01/23/24 05:22
Hct 37.2 % (39.0-52.0) L 01/23/24 05:22
Plt Count 295 10^3/uL (130-400) 01/23/24 05:22
PT 13.7 Sec (11.4-14.6) 01/19/24 18:36
INR 1.07 01/19/24 18:36
Sodium 139 mmol/L (135-145) 01/23/24 05:22
Potassium 3.8 mmol/L (3.5-5.1) 01/23/24 05:22
BUN 33 mg/dl (9-20) H 01/23/24 05:22
Creatinine 1.0 mg/dL (0.7-1.3) 01/23/24 05:22
Glucose 106 mg/dl (70-99) H 01/23/24 05:22
Troponins
01/20/24 01/20/24
11:27 17:05
Troponin I 0.022 D 0.015 D
Vital Signs and I&O:
Vital Signs
Temp Pulse Resp BP Pulse Ox
98.3 F 60 14 134/70 98
01/23/24 06:57 01/23/24 07:00 01/23/24 06:57 01/23/24 06:59 01/23/24 06:57
Vital Signs
Temp Pulse Resp BP Pulse Ox
98.3 F 60 14 134/70 98
01/23/24 06:57 01/23/24 07:00 01/23/24 06:57 01/23/24 06:59 01/23/24 06:57
Intake & Output
01/21/24 01/22/24 01/23/24 01/24/24
07:59 07:59 07:59 07:59
Intake Total 360 / 360 1180 / 1180
Output Total 1025 / 1025 2375 / 2375 3800 / 3800
Balance -665 / -665 -1195 / -1195 -3800 / -3800
Physical Exam
Physical Exam
General: No Apparent Distress and Comfortable
HEENT: Normocephalic, Anicteric and Moist Mucous Membranes
Respiratory: CTA B/L, Non Labored Respirations
Cardiac: S1/S2 and Regular Rhythm
GI: Soft, Non Tender, Normal Bowel Sounds and Distended
Musculoskeletal: No Clubbing, No Cyanosis and Edema 1+ B/L
Skin: Warm and Dry
Neuro: AO x 3
[2024-01-23] MEDS: FEOSOL 325 MG PO (09:24)
[2024-01-23] MEDS: FARXIGA 10 MG PO (09:24)
[2024-01-23] MEDS: COREG 6.25 MG PO ×2 (09:24→19:59)
[2024-01-23] MEDS: GLUCOPHAGE XR EXTENDED RELEASE 1000 MG PO ×2 (09:24→19:59)
[2024-01-23] MEDS: NORVASC 10 MG PO (09:25)
[2024-01-23] MEDS: ZESTRIL 40 MG PO (09:25)
[2024-01-23] MEDS: JANUVIA 50 MG PO (09:25)
[2024-01-23] MEDS: VITAMIN B-12 1000 MCG PO (09:25)
[2024-01-23] MEDS: FLUSH (NSS) 2 FLUSH IV (09:26)
[2024-01-23] MEDS: LASIX 40 MG IV ×2 (09:26→17:14)
[2024-01-23] MEDS: HEPARIN 5000 UNITS SC ×2 (09:27→20:00)
[2024-01-23 10:37] VITALS: BMI 39.4
--- NOTE | 2024-01-23 11:12 | W.PN.HOSP.TC ---
Today's Communication/Plan
-
Cath in am
Diuresis
Assessment / Plan
Assessment / Plan
73-year-old male presented to [facility] because of shortness of breath and chest discomfort. He also has had bilateral lower extremity edema and weight gain
On examination awake alert
Has pain in the legs and also mild shortness of breath with ambulation.
Cardiovascular system S1-S2 appreciated
Chest decreased breath sounds, few rales
Bilateral lower extremity edema better
used voltage regulator assembler
# Acute heart failure with preserved ejection fraction
Echo 01/22/2024-normal LV size and systolic function. EF 55 to 60%. Mild concentric LVH. Diastolic function indeterminate. Normal RV size. Mild . Mild AI.
T inversions in the EKG and also nonsustained VT
Continue diuresis with IV Lasix
weight coming down
Lower extremity Dopplers no DVT
Beta-jin started
Follow electrolytes and replace as needed
Continue lisinopril.
For cardiac catheterization tomorrow
weight from 106.3 Kg to 97.6 Kg
# Diabetes-hemoglobin A1c 9.8
Continue Januvia, Farxiga and metformin
Diabetic education, dietary education
Weight loss will also help
Sugars stable
# Pmqwwlpoveug-sbnt-iawqjha, amlodipine and lisinopril to be continued
Off nitroglycerin drip
# Nonischemic myocardial injury
# Hyperlipidemia-continue statin
# Anemia-mild iron deficiency. P.o. iron ordered outpatient colonoscopy
# Sleep apnea Suspected. Patient may need to get sleep study as outpatient
# History of prostate cancer status post resection
# Glaucoma-continue latanoprost eyedrops
# Obesity
# History of right fingertip amputation.Peripheral neuropathy
# Spinal stenosis
# DVT prophylaxis-Lovenox
# Full code
Discussed with nursing at bed side
D/W cards
Updated daughter Nirmala .
Anticipated Discharge: 24 - 48 hours
Subjective/Interval History
-
Date of Service: January 23, 2024
Objective Data
-
Labs:
Laboratory Results
01/23/24
05:22
WBC 7.9
Hgb 11.8 L
Hct 37.2 L
Plt Count 295
Sodium 139
Potassium 3.8
Chloride 106
Carbon Dioxide 28
BUN 33 H
Creatinine 1.0
Glucose 106 H
Calcium 8.4
Vital Signs:
Vital Signs
Temp Pulse Resp BP Pulse Ox
98.3 F 60 14 134/70 98
01/23/24 06:57 01/23/24 07:00 01/23/24 06:57 01/23/24 06:59 01/23/24 06:57
I&O
01/22/24 01/23/24 01/24/24
06:59 06:59 06:59
Intake Total 1180 / 1180
Output Total 2375 / 2375 3800 / 3800
Balance -1195 / -1195 -3800 / -3800
--- NOTE | 2024-01-23 11:29 | CM ---
Chart reviewed. Patient is independent of ADLS, lives with his in a 1 STH, 3-4 SAMRA, 0 DME. Patient's is out of the town and daughter is available, . Patient is waiting for heart cath. Plan is for the patient to return
home. CM to follow
--- NOTE | 2024-01-23 11:44 | PTCARENOTE ---
Received patient this morning sitting oob in the chair. Patient is using [employer] to communicate with staff members. Legs remain edematous, lacie wraps applied. Patient offers no complaints at this time. Seen by Dr. Jarrett, plan is for
cardiac cath tomorrow.
[2024-01-23 11:50] VITALS: BP 134/66
[2024-01-23 12:08] LABS: Glucose - Point of Care 147 mg/dl (70-99)
--- NOTE | 2024-01-23 13:55 | PTCARENOTE ---
Diabetes Education- A1C 9.8%. Taking Metformin 1000 mg QD prior to admission. Using goggle furnace door tender to communicate, Mr. Pope states he had pre-diabetes. Informed him of elevated A1C and need to monitor BS, eat healthy, take medication as
prescribed and increase activity. Provided with and instructions given on Contour Next EZ glucometer. Good return demonstration with result of 137 mg/dl. Januvia and Farxiga have been added. He did have some dexterity issues, states suffers from
carpal tunnel but able to perform. lancing device set at 3. He is aware to test 2x/day. Education booklet provided, he will translate to bulgarian. Provided with names and phone number of myself and outpt dieticians. He would not be a good candidate
for outpt DSME classes due to language barrier. He is aware to use the glucose meter that his insurance prefers, discussed the Reli-On glucometer from [facility] as being cost effective, prices written on education booklet. Will need RX at discharge
for test strips/lancets for the Contour Next EZ, testing 2x/day.
[2024-01-23 15:14] VITALS: BP 128/61
[2024-01-23 15:40] VITALS: BMI 39.4
[2024-01-23 17:11] LABS: Glucose - Point of Care 113 mg/dl (70-99)
[2024-01-23] MEDS: LIPITOR 40 MG PO (17:14)
--- NOTE | 2024-01-23 17:59 | PTCARENOTE ---
Patient given heart failure and information about cardiac catheterization in his uzbek language. Staff member from clinic present in the room visiting and left his card, able to translate for the patient whenever it is needed.
[2024-01-23 19:57] VITALS: BP 134/70
[2024-01-23 22:40] LABS: Glucose - Point of Care 170 mg/dl (70-99)
[2024-01-23 22:41] VITALS: BP 118/64
[2024-01-23] MEDS: XALATAN OPHTHALMIC SOLUTION 1 DROP BOTH EYES (22:42)
--- NOTE | 2024-01-23 23:16 | PTCARENOTE ---
Pt rec'd at change of shift awake,alert with family at bedside. Pt's son translated for nursing so pt understood npo status after mn for cath in am. Sinus on telemetry. HS BS 170 pt had eaten fruit when family present.
[2024-01-24] VITALS (11 sets, daily range): BP systolic 118–164; BP diastolic 57–94; BMI 39.1
[2024-01-24 04:18] LABS: Hematocrit 37.3 % (39.0-52.0); Hemoglobin 12.2 g/dL (13.0-18.0); Mean Corp Hgb Conc. 32.7 g/dL (33.0-37.0); Mean Corpuscular Hgb 27.7 pg (27.0-31.0); Mean Corpuscular Volume 84.6 fL (80.0-94.0); Mean Platelet Volume 8.8 fL (7.4-10.4); Platelet Count 317 10^3/uL (130-400); Red Blood Cell Count 4.41 10^6/uL (4.70-6.10); Red Cell Dist. Width 14.8 % (11.5-14.5)
[2024-01-24 04:40] LABS: Blood Urea Nitrogen 36 mg/dl (9-20); Calcium 8.7 mg/dl (8.4-10.2); Carbon Dioxide 27 mmol/L (22-30); Chloride 107 mmol/L (98-107); Estimated Creatinine Clearance 62 ml/min; Glucose 120 mg/dl (70-99); Potassium 3.9 mmol/L (3.5-5.1); Sodium 139 mmol/L (135-145); eGFR > 60.00
[2024-01-24 08:23] LABS: Glucose - Point of Care 112 mg/dl (70-99)
[2024-01-24] MEDS: NOVOLOG FLEXPEN-LOW RESISTANCE SC ×3 (08:34→16:46)
[2024-01-24] MEDS: COREG 6.25 MG PO (09:07)
[2024-01-24] MEDS: GLUCOPHAGE XR EXTENDED RELEASE PO ×2 (09:08→21:18)
[2024-01-24] MEDS: JANUVIA PO (09:08)
[2024-01-24] MEDS: FEOSOL 325 MG PO (09:08)
[2024-01-24] MEDS: NORVASC 10 MG PO (09:09)
[2024-01-24] MEDS: VITAMIN B-12 1000 MCG PO (09:09)
[2024-01-24] MEDS: ZESTRIL 40 MG PO (09:09)
[2024-01-24] MEDS: FARXIGA 10 MG PO (09:09)
--- NOTE | 2024-01-24 09:09 | ITS.CL.CATH ---
Material Damage Adjuster - Catheterization
Cardiac Catheterization
Procedure Report:
LEFT AND RIGHT HEART CATHETERIZATION
Date of Procedure: January 24, 2024
Referring: Meredith Naik MD
PROCEDURES:
1. Left heart catheterization, coronary angiogram.
2. Right heart catheterization.
3. Ultrasound-guided access
INDICATION: Patient is a 73-year-old gentleman with past medical history of morbid obesity, hypertension, hyperlipidemia, prostate cancer status postresection, recently diagnosed diabetes mellitus type 2 with last hemoglobin A1c of 9.8 on January 19,
2023, peripheral neuropathy who presents with progressive chest discomfort and shortness of breath found to be in acute decompensated diastolic heart failure and abnormal EKG who is now being referred for left and right heart catheterization.
Echocardiogram from January 22, 2024 showed LVEF of 55 to 60%, mild LVH, mild aortic stenosis with peak and mean transit aortic gradients of 35 and 17 mmHg without significant aortic regurgitation. Detailed informed consent reviewing the risk and
benefits was discussed with patient and his daughter using video optical goods drilling machine operator.
ACCESS:
1. Right radial artery, 6 Khmer sheath, under ultrasound guidance.
2. Right brachial vein, 6 Khmer sheath
HEMODYNAMICS : (mmHg)
RA (m) : 50
RV (s/d,m) : 47/8, 60
PA (s/d, m) : 45/18
PCWP (m) : 22 mmHg
PA saturation: 64.5% on room air
AO saturation: 93.9% on room air
RA saturation: 63% on room air
Cardiac Output : 4.35 L/min by Norma calculation
Cardiac Index : 2.22 L/min/m-2 by Norma calculation
Systemic vascular resistance: 1270 dsc^(-5)
Pulmonary vascular resistance: 3.22 doty unit
Heart rate: 60 bpm
AO (s/d) : 125/72
LV (s/d) : 135/8
LVEDP : 30
CORONARY FINDINGS
DOMINANCE: Right
LEFT MAIN: The left main artery is a large-caliber vessel which gives rise to the left anterior descending artery and left circumflex artery. There is minimal luminal irregularities.
LEFT ANTERIOR DESCENDING: The left anterior descending artery is a large-caliber vessel which gives rise to multiple medium caliber diagonal branches as it courses through the anterior interventricular groove and wraps around the apex. There is
minimal luminal irregularities.
CIRCUMFLEX: The left circumflex artery is a medium to large caliber vessel which gives rise to 1 major obtuse marginal branch and multiple medium caliber left posterolateral branches. There is minimal luminal irregularities.
RIGHT CORONARY ARTERY: The right coronary artery is a large-caliber, dominant vessel which gives rise to the right posterior descending artery and a small right posterolateral system. There is mild diffuse atherosclerotic plaque.
SEDATION: 39 minutes of procedural sedation was utilized. An independent medical record clerk was present to assist with and help manage the patient's level of consciousness and physiologic status.
RADIATION SUMMARY: Fluoro Time (min): 4.0, Dose (mGy): 546.75, DAP (Gy.cm2) : 47.8
Closure Device:
1. Vascular band over right radial artery, 10 cc of air.
2. Manual pressure was held over the right brachial venous access site with successful hemostasis.
CONCLUSIONS
1. No obstructive coronary artery disease.
2. Significantly elevated right and left-sided filling pressures with normal cardiac output. Normal systemic vascular resistance. Pulmonary hypertension is also noted.
RECOMMENDATIONS
1. Optimize filling pressures with further IV diuresis and goal-directed medical therapy for heart failure with preserved ejection fraction.
2. Wean radial band per protocol.
3. Aggressive management of cardiovascular risk factors.
Copy to: Meredith Naik MD
Ginger Phillips MD, [facility], [facility]
[2024-01-24] MEDS: LASIX 40 MG IV ×2 (09:10→18:07)
[2024-01-24] MEDS: FLUSH (NSS) 1 FLUSH IV (09:10)
[2024-01-24] MEDS: HEPARIN 5000 UNITS SC ×2 (09:10→22:45)
--- NOTE | 2024-01-24 09:38 | PTCARENOTE ---
Received patient this morning oob in the chair. Dr. Phillips in to see the patient, utilized ipad it compliance manager to explain cardiac cath which will be done later today. Patient is aware to be NPO x meds, offers no complaints. The patient's family were on
speaker phone and included in the conversation.
--- NOTE | 2024-01-24 10:28 | W.PN.HOSP.TC ---
Today's Communication/Plan
-
Cath
Assessment / Plan
Assessment / Plan
73-year-old male presented to [facility] because of shortness of breath and chest discomfort. He also has had bilateral lower extremity edema and weight gain
On examination awake alert
Has pain in the legs and also mild shortness of breath with ambulation.
Cardiovascular system S1-S2 appreciated
Chest -CTA
Bilateral lower extremity edema much better
# Acute heart failure with preserved ejection fraction
Echo 01/22/2024-normal LV size and systolic function. EF 55 to 60%. Mild concentric LVH. Diastolic function indeterminate. Normal RV size. Mild . Mild AI.
T inversions in the EKG and also nonsustained VT
Continue diuresis with IV Lasix
weight coming down
Lower extremity Dopplers no DVT
Beta-jin started
Follow electrolytes and replace as needed
Continue lisinopril.
For cardiac catheterization
weight from 106.3 Kg to 96.8 Kg
# Diabetes-hemoglobin A1c 9.8
Continue Januvia, Farxiga and metformin
Diabetic education, dietary education
Weight loss will also help
Sugars stable
# Smjlzqimcqys-szsh-cnokvug, amlodipine and lisinopril to be continued
Off nitroglycerin drip
# Nonischemic myocardial injury
# Hyperlipidemia-continue statin
# Anemia-mild iron deficiency. P.o. iron ordered outpatient colonoscopy
# Sleep apnea Suspected. Patient may need to get sleep study as outpatient
# History of prostate cancer status post resection
# Glaucoma-continue latanoprost eyedrops
# Obesity
# History of right fingertip amputation.Peripheral neuropathy
# Spinal stenosis
# DVT prophylaxis-Lovenox
# Full code
Discussed with nursing at bed side
Anticipated Discharge: Within 24 hours
Subjective/Interval History
-
Date of Service: January 24, 2024
Objective Data
-
Labs:
Laboratory Results
01/24/24
04:05
WBC 9.0
Hgb 12.2 L
Hct 37.3 L
Plt Count 317
Sodium 139
Potassium 3.9
Chloride 107
Carbon Dioxide 27
BUN 36 H
Creatinine 1.1
Glucose 120 H
Calcium 8.7
Vital Signs:
Vital Signs
Temp Pulse Resp BP Pulse Ox
98.3 F 63 18 118/70 94
01/24/24 07:09 01/24/24 07:05 01/24/24 07:09 01/24/24 07:05 01/24/24 07:09
I&O
01/23/24 01/24/24 01/25/24
06:59 06:59 06:59
Intake Total 600 / 600
Output Total 3800 / 3800 2350 / 2350
Balance -3800 / -3800 -1750 / -1750
[2024-01-24 12:24] LABS: Glucose - Point of Care 110 mg/dl (70-99)
[2024-01-24 16:44] LABS: Glucose - Point of Care 105 mg/dl (70-99)
--- NOTE | 2024-01-24 16:48 | PTCARENOTE ---
Received patient from the medical laboratory technical officer after R&LHC via right radial artery and right brachial vein. Radial band in place, dressing is dry and intact with a strong radial pulse. Right brachial dressing is dry and intact. Monitoring VS, ordering patient
dinner, reviewed post cath restrictions. Call riley within reach.
[2024-01-24] MEDS: LIPITOR 40 MG PO (18:08)
[2024-01-24] MEDS: NSS 1000 IV (18:08)
[2024-01-24] MEDS: COREG 12.5 MG PO (20:12)
[2024-01-24] MEDS: XALATAN OPHTHALMIC SOLUTION 1 DROP BOTH EYES (22:45)
[2024-01-24] MEDS: TYLENOL 650 MG PO (22:46)
[2024-01-24 22:51] LABS: Glucose - Point of Care 104 mg/dl (70-99)
--- NOTE | 2024-01-24 23:07 | PTCARENOTE ---
Pt rec'd at change of shift in recliner chair awake,alert . c/o pain at present in b/l feet. medicated with Tylenol at HS. right radial and right brachial cath site with drsg intact. Both sites soft with good pulses. b/l leg lacie compression wraps
removed at HS as directed. pt denies sob at this time.
Sinus on telemetry.
[2024-01-25 05:06] VITALS: BP 111/58
[2024-01-25 06:23] LABS: Hematocrit 37.4 % (39.0-52.0); Mean Corp Hgb Conc. 32.1 g/dL (33.0-37.0); Mean Corpuscular Hgb 27.1 pg (27.0-31.0); Mean Corpuscular Volume 84.6 fL (80.0-94.0); Mean Platelet Volume 9.7 fL (7.4-10.4); Platelet Count 325 10^3/uL (130-400); Red Blood Cell Count 4.42 10^6/uL (4.70-6.10); Red Cell Dist. Width 14.8 % (11.5-14.5); White Blood Cell Count 8.5 10^3/uL (4.8-10.8)
[2024-01-25 06:34] VITALS: BP 125/61
[2024-01-25 06:51] LABS: Blood Urea Nitrogen 40 mg/dl (9-20); Calcium 8.6 mg/dl (8.4-10.2); Carbon Dioxide 26 mmol/L (22-30); Chloride 108 mmol/L (98-107); Estimated Creatinine Clearance 57 ml/min; Glucose 107 mg/dl (70-99); Potassium 4.1 mmol/L (3.5-5.1); Sodium 139 mmol/L (135-145); eGFR > 60.00
[2024-01-25 07:42] LABS: Glucose - Point of Care 111 mg/dl (70-99)
[2024-01-25 07:57] VITALS: BMI 38.7
[2024-01-25] MEDS: NOVOLOG FLEXPEN-LOW RESISTANCE SC ×2 (08:06→17:01)
[2024-01-25] MEDS: LASIX 40 MG IV (08:31)
[2024-01-25] MEDS: HEPARIN 5000 UNITS SC ×2 (08:31→20:08)
[2024-01-25] MEDS: FARXIGA 10 MG PO (08:32)
[2024-01-25] MEDS: ZESTRIL 40 MG PO (08:32)
[2024-01-25] MEDS: FEOSOL 325 MG PO (08:32)
[2024-01-25] MEDS: JANUVIA 50 MG PO (08:32)
[2024-01-25] MEDS: NORVASC 10 MG PO (08:32)
[2024-01-25] MEDS: VITAMIN B-12 1000 MCG PO (08:32)
[2024-01-25] MEDS: COREG 12.5 MG PO ×2 (08:32→20:08)
--- NOTE | 2024-01-25 11:07 | W.PN.HOSP.TC ---
Today's Communication/Plan
-
Diuresis
Possible discharge in am
Assessment / Plan
Assessment / Plan
73-year-old male presented to [facility] because of shortness of breath and chest discomfort. He also has had bilateral lower extremity edema and weight gain
On examination awake alert
Has pain in the legs and also mild shortness of breath with ambulation.
Cardiovascular system S1-S2 appreciated
Chest -CTA
Bilateral lower extremity edema much better
Used tank shop supervisor
# Acute heart failure with preserved ejection fraction
Echo 01/22/2024-normal LV size and systolic function. EF 55 to 60%. Mild concentric LVH. Diastolic function indeterminate. Normal RV size. Mild . Mild AI.
T inversions in the EKG and also nonsustained VT
Continue diuresis with IV Lasix
weight coming down
Lower extremity Dopplers no DVT
Beta-jin started
Follow electrolytes and replace as needed
Continue lisinopril.
Cardiac catheterization 01/24/2024-nonobstructive coronary artery disease. Elevated right and left filling pressure with normal cardiac output. Pulmonary hypertension also noted
weight from 106.3 Kg to 95.9 Kg
OP Sleep study
# Diabetes-hemoglobin A1c 9.8
Continue Januvia, Farxiga and metformin
Diabetic education, dietary education
Weight loss will also help
Sugars stable
# Glgihdofblku-jowc-rlqvykd, amlodipine and lisinopril to be continued
Off nitroglycerin drip
# Nonischemic myocardial injury
# Hyperlipidemia-continue statin
# Anemia-mild iron deficiency. P.o. iron ordered outpatient colonoscopy
# Sleep apnea Suspected. Patient may need to get sleep study as outpatient
# History of prostate cancer status post resection
# Glaucoma-continue latanoprost eyedrops
# Obesity
# History of right fingertip amputation.Peripheral neuropathy
# Spinal stenosis
# DVT prophylaxis-Lovenox
# Full code
Discussed with nursing
Anticipated Discharge: Within 24 hours
Subjective/Interval History
-
Date of Service: January 25, 2024
Objective Data
-
Labs:
Laboratory Results
01/25/24
05:13
WBC 8.5
Hgb 12.0 L
Hct 37.4 L
Plt Count 325
Sodium 139
Potassium 4.1
Chloride 108 H
Carbon Dioxide 26
BUN 40 H
Creatinine 1.2
Glucose 107 H
Calcium 8.6
Vital Signs:
Vital Signs
Temp Pulse Resp BP Pulse Ox
98.0 F 59 18 125/61 92
01/25/24 07:00 01/25/24 09:00 01/25/24 07:00 01/25/24 06:34 01/25/24 07:00
I&O
01/24/24 01/25/24 01/26/24
06:59 06:59 06:59
Intake Total 600 / 600 780 / 780 480 / 480
Output Total 2350 / 2350 1650 / 1650
Balance -1750 / -1750 -870 / -870 480 / 480
--- NOTE | 2024-01-25 11:10 | W.PN.CARDCBS ---
Addendum entered and electronically signed by Philippe Parish MD 01/25/24 11:57:
I saw and examined the patient.
The Strong Nitric Operator's note was reviewed and I agree with the note.
Comment:
GEN: No distress, awake, Ox3
HEENT: supple, anicteric, mmm
LUNGS: CTA, no wheezes/rales
CV: Reg, S1/S2, / syst LSB, S4+
ABD: soft, BS+, NT/ND
EXT: +1 edema
NEURO: Gross non-focal
SKIN: No rash
Plan:
Will continue IV Lasix 40 mg twice daily for another 24 hours. Extra 20 mg of Lasix in the p.m.
Continue Coreg, lisinopril, Farxiga, Lipitor, and amlodipine.
Creatinine at 1.2. Will likely need to switch to oral diuretics in the a.m.
Original Note:
Today's Communication / Plan
-
continue IV diuresis, consider transition to po in AM
continue norvasc, coreg, lisinopril, farxiga, lipitor
will arrange OP cardiac follow up, for possible DC in AM
Impression / Plan
-
Primary Senior Sas Programmer: none
PCP: Dr. Carnes
Assessment:
Presentation with SOB, CP
Acute CHF, with preserved ejection fraction
Abnormal EKG
History of prediabetes, now diabetic by hgbA1c 9.8 on 01/19
HTN
HLD
Peripheral neuropathy
Obesity
Prostate cancer status post resection
Echocardiogram 01/22/2024: Ejection fraction 55 to 60%. Mild LVH. Normal right ventricle. Mitral valve sclerosis without stenosis or regurgitation. Mild aortic valve stenosis with peak/mean gradient 35/17 mmHg and mild AI. No TR.
Plan:
-Patient presented with chest pain and shortness of breath. Found to be in acute decompensated congestive heart failure, although proBNP 201
-EKG was abnormal on presentation and he complained of some chest discomfort on arrival. underwent cath 01/23 with nonobstructive CAD, results reviewed with patient 01/24
-LVEDP by cath was 30. continue IV lasix diuresis today, for possible transition to po in AM. weight continues to trend down if accurate. Cr 1.2 on 01/24.
-Echo with preserved EF, mild /AI
-Continue Coreg, Norvasc, lisinopril
-LDL 81. Continue Lipitor, dose increased this admission
-He has a history of prediabetes. By hemoglobin A1c this admission he is now diabetic at 9.8%. Consult diabetic education and defer to primary service. For both CHF and diabetes, Ubaldo added.
-CHF education
-will arrange OP cardiac follow up.
-I used Google translate during our interview today.
-d/w nursing
Progress Note - Senior Sas Programmer
Subjective
Date of Service: January 25, 2024
Reports he feels well. No complaints overnight
Objective
Labs:
01/25/24 05:13
01/25/24 05:13
Labs
Hgb 12.0 g/dL (13.0-18.0) L 01/25/24 05:13
Hct 37.4 % (39.0-52.0) L 01/25/24 05:13
Plt Count 325 10^3/uL (130-400) 01/25/24 05:13
PT 13.7 Sec (11.4-14.6) 01/19/24 18:36
INR 1.07 01/19/24 18:36
Sodium 139 mmol/L (135-145) 01/25/24 05:13
Potassium 4.1 mmol/L (3.5-5.1) 01/25/24 05:13
BUN 40 mg/dl (9-20) H 01/25/24 05:13
Creatinine 1.2 mg/dL (0.7-1.3) 01/25/24 05:13
Glucose 107 mg/dl (70-99) H 01/25/24 05:13
Vital Signs and I&O:
Vital Signs
Temp Pulse Resp BP Pulse Ox
98.0 F 59 18 125/61 92
01/25/24 07:00 01/25/24 09:00 01/25/24 07:00 01/25/24 06:34 01/25/24 07:00
Vital Signs
Temp Pulse Resp BP Pulse Ox
98.0 F 59 18 125/61 92
01/25/24 07:00 01/25/24 09:00 01/25/24 07:00 01/25/24 06:34 01/25/24 07:00
Intake & Output
01/23/24 01/24/24 01/25/24 01/26/24
07:59 07:59 07:59 07:59
Intake Total 600 / 600 780 / 1260 480 / 480
Output Total 3800 / 3800 2350 / 2650 1650 / 1650
Balance -3800 / -3800 -1750 / -2050 -870 / -390 480 / 480
Physical Exam
Physical Exam
GEN: No distress, awake, alert, orientedx3. sitting in chair
HEENT: supple, anicteric, mmm, eomi
LUNGS: CTA B/L, no wheezes
CV: Reg, S1/S2, no murmur
ABD: soft, BS+, NT/ND
EXT: No cyanosis, clubbing. 1+ edema of B/L LE. lacie wraps in place
NEURO: Gross non-focal
SKIN: Warm, pink, dry. No rash
[2024-01-25 11:11] VITALS: BP 110/65
--- NOTE | 2024-01-25 11:39 | CM ---
Chart reviewed. Patient is kinyarwanda speaking, independent of ADLS, lives with his who is out of town, 1 STH, 3-4 SAMRA, 0 DME. Plan is for the patient to return home. CM to follow.
[2024-01-25 11:52] LABS: Glucose - Point of Care 169 mg/dl (70-99)
[2024-01-25] MEDS: NOVOLOG FLEXPEN-LOW RESISTANCE 1 UNITS SC (13:24)
[2024-01-25 15:03] VITALS: BP 111/63
[2024-01-25 17:01] LABS: Glucose - Point of Care 131 mg/dl (70-99)
[2024-01-25] MEDS: LASIX 60 MG IV (17:01)
[2024-01-25] MEDS: LIPITOR 40 MG PO (17:01)
[2024-01-25 19:02] VITALS: BP 143/97
[2024-01-25 21:18] LABS: Glucose - Point of Care 179 mg/dl (70-99)
--- NOTE | 2024-01-25 21:48 | PTCARENOTE ---
Pt rec'd at change of shift in recliner chair. no complaints. b/l LE lacie wraps removed at 2100. Son at bedside. Pt concerned about elevated BS at HS of 179. Pt currently not receiving Glucophage post cath. Pt's son translated to pt that Glucophage
will resume tomorrow evening. Radial and brachial sites intact. No c/o sob per pt.
[2024-01-25 22:33] VITALS: BP 117/62
[2024-01-25] MEDS: XALATAN OPHTHALMIC SOLUTION 1 DROP BOTH EYES (22:42)
[2024-01-26 04:13] VITALS: BP 119/62
[2024-01-26 04:22] VITALS: BMI 38.5
[2024-01-26 07:37] VITALS: BP 108/45
[2024-01-26 07:40] LABS: Glucose - Point of Care 102 mg/dl (70-99)
[2024-01-26] MEDS: NOVOLOG FLEXPEN-LOW RESISTANCE SC (08:21)
[2024-01-26] MEDS: FARXIGA 10 MG PO (08:22)
[2024-01-26] MEDS: JANUVIA 50 MG PO (08:22)
[2024-01-26] MEDS: FEOSOL 325 MG PO (08:22)
[2024-01-26] MEDS: NORVASC 10 MG PO (08:22)
[2024-01-26] MEDS: ZESTRIL 40 MG PO (08:23)
[2024-01-26] MEDS: COREG 12.5 MG PO (08:23)
[2024-01-26] MEDS: HEPARIN 5000 UNITS SC (08:23)
[2024-01-26] MEDS: VITAMIN B-12 1000 MCG PO (08:23)
--- NOTE | 2024-01-26 08:49 | W.PN.CARDCBS ---
Addendum entered and electronically signed by Madeleine Sanders DO 01/26/24 09:25:
I saw and examined the patient.
The Prosthetic Lab Technician's note was reviewed and I agree with the note.
Comment: Seen and examined. Sitting out of bed to chair. No new events
GEN: No distress
HEENT: mmm
LUNGS: CTA B/L, no wheezes/rales
CV: Reg and rupal, S1/S2, no murmur
ABD: soft, BS+, NT/ND
EXT: trace edema of B/L LE. lacie wraps in place
Plan:
Patient presented with chest pain and shortness of breath. Found to be in acute decompensated congestive heart failure. proBNP was 201.
-EKG was abnormal on presentation and he complained of some chest discomfort on arrival. underwent cath 01/23 with nonobstructive CAD, results reviewed with patient again 01/25
-LVEDP by cath was 30 on 01/23. plan for transition to po lasix today. Cr was 1.2 on 01/24, awaiting repeat. was on HCTZ prior to admission. will plan for po lasix 40mg BID upon DC
-Echo with preserved EF, mild /AI
-Continue Coreg, Norvasc, lisinopril
-LDL 81. Continue Lipitor, dose increased this admission
-hemoglobin A1c this admission 9.8%. continue metformin. For both CHF and diabetes, Ubaldo added.
-CHF education. encouraged salt and fluid restrictions
-OP cardiac follow up arranged
-will need OP sleep study
Okay for discharge today from cardiac standpoint.
Original Note:
Today's Communication / Plan
-
Feeling well
Awaiting BMP. Plan to transition to p.o. Lasix 40 mg twice daily
BMP in 1 week
Continue Coreg, lisinopril, Norvasc, Farxiga
Outpatient cardiac follow-up arranged
Will need outpatient sleep study
Okay for discharge today from cardiac standpoint. Discussed with hospitalist
Impression / Plan
-
Primary Wallpaper Inspector And Shipper: none
PCP: Dr. Carnes
Assessment:
Presentation with SOB, CP
Acute CHF, with preserved ejection fraction
Abnormal EKG
History of prediabetes, now diabetic by hgbA1c 9.8 on 01/19
HTN
HLD
Peripheral neuropathy
Obesity
Prostate cancer status post resection
Echocardiogram 01/22/2024: Ejection fraction 55 to 60%. Mild LVH. Normal right ventricle. Mitral valve sclerosis without stenosis or regurgitation. Mild aortic valve stenosis with peak/mean gradient 35/17 mmHg and mild AI. No TR.
Plan:
-Patient presented with chest pain and shortness of breath. Found to be in acute decompensated congestive heart failure. proBNP was 201.
-EKG was abnormal on presentation and he complained of some chest discomfort on arrival. underwent cath 01/23 with nonobstructive CAD, results reviewed with patient again 01/25
-LVEDP by cath was 30 on 01/23. plan for transition to po lasix today. Cr was 1.2 on 01/24, awaiting repeat. was on HCTZ prior to admission. will plan for po lasix 40mg BID upon DC
-Echo with preserved EF, mild /AI
-Continue Coreg, Norvasc, lisinopril
-LDL 81. Continue Lipitor, dose increased this admission
-hemoglobin A1c this admission 9.8%. continue metformin. For both CHF and diabetes, Ubaldo added.
-CHF education. encouraged salt and fluid restrictions
-OP cardiac follow up arranged
-will need OP sleep study
-we discussed reevaluation for going back to work at office visit next week
-I used language line during our interview today.
-d/w nursing, hospitalist
Progress Note - Wallpaper Inspector And Shipper
Subjective
Date of Service: January 26, 2024
Feeling well. No issues overnight
Objective
Labs:
01/25/24 05:13
Labs
Hgb 12.0 g/dL (13.0-18.0) L 01/25/24 05:13
Hct 37.4 % (39.0-52.0) L 01/25/24 05:13
Plt Count 325 10^3/uL (130-400) 01/25/24 05:13
PT 13.7 Sec (11.4-14.6) 01/19/24 18:36
INR 1.07 01/19/24 18:36
Sodium 139 mmol/L (135-145) 01/25/24 05:13
Potassium 4.1 mmol/L (3.5-5.1) 01/25/24 05:13
BUN 40 mg/dl (9-20) H 01/25/24 05:13
Creatinine 1.2 mg/dL (0.7-1.3) 01/25/24 05:13
Glucose 107 mg/dl (70-99) H 01/25/24 05:13
Vital Signs and I&O:
Vital Signs
Temp Pulse Resp BP Pulse Ox
97.5 F 55 14 108/45 93
01/26/24 07:35 01/26/24 07:37 01/26/24 07:35 01/26/24 07:37 01/26/24 07:35
Vital Signs
Temp Pulse Resp BP Pulse Ox
97.5 F 55 14 108/45 93
01/26/24 07:35 01/26/24 07:37 01/26/24 07:35 01/26/24 07:37 01/26/24 07:35
Intake & Output
01/24/24 01/25/24 01/26/24 01/27/24
07:59 07:59 07:59 07:59
Intake Total 600 / 600 780 / 1260 960 / 960
Output Total 2350 / 2650 1650 / 1650 1800 / 1800
Balance -1750 / -2050 -870 / -390 -840 / -840
Physical Exam
Physical Exam
GEN: No distress, awake, alert, oriented x3
HEENT: supple, anicteric, mmm, eomi
LUNGS: CTA B/L, no wheezes/rales
CV: Reg and rupal, S1/S2, no murmur
ABD: soft, BS+, NT/ND
EXT: No cyanosis, clubbing. trace edema of B/L LE. lacie wraps in place
NEURO: Gross non-focal
SKIN: Warm, pink, dry. No rash
--- NOTE | 2024-01-26 09:13 | W.PN.HOSP.TC ---
Today's Communication/Plan
-
Discharge
Assessment / Plan
Assessment / Plan
73-year-old male presented to [facility] because of shortness of breath and chest discomfort. He also has had bilateral lower extremity edema and weight gain
On examination awake alert
Has pain in the legs and also mild shortness of breath with ambulation.
Cardiovascular system S1-S2 appreciated
Chest -CTA
Bilateral lower extremity edema much better
Used financial assistant phone
# Acute heart failure with preserved ejection fraction
Echo 01/22/2024-normal LV size and systolic function. EF 55 to 60%. Mild concentric LVH. Diastolic function indeterminate. Normal RV size. Mild . Mild AI.
T inversions in the EKG and also nonsustained VT
Continue diuresis with Po Lasix
Lower extremity Dopplers no DVT
Beta-jin / lisinopril.
Cardiac catheterization 01/24/2024-nonobstructive coronary artery disease. Elevated right and left filling pressure with normal cardiac output. Pulmonary hypertension also noted
weight from 106.3 Kg to 95.4 Kg
OP Sleep study
# Diabetes-hemoglobin A1c 9.8
Continue Januvia, Farxiga and metformin
Diabetic education, dietary education
Weight loss will also help
Sugars stable
# Yalygocgprmd-utfy-auzxzbz, amlodipine and lisinopril to be continued
Off nitroglycerin drip
# Nonischemic myocardial injury
# Hyperlipidemia-continue statin
# Anemia-mild iron deficiency. P.o. iron ordered outpatient colonoscopy
# Sleep apnea Suspected. Patient may need to get sleep study as outpatient
# History of prostate cancer status post resection
# Glaucoma-continue latanoprost eyedrops
# Obesity
# History of right fingertip amputation.Peripheral neuropathy
# Spinal stenosis
# DVT prophylaxis-Lovenox
# Full code
Discussed with nursing at bedside
Discussed with cardiology at bedside
Discussed with patient regarding compression therapy for the lower extremities, taking medicines appropriately to help with heart failure.
Discharge time 35 min
Anticipated Discharge: Today
Subjective/Interval History
-
Date of Service: January 26, 2024
Objective Data
-
Labs:
Laboratory Results
01/26/24
08:49
Sodium Pending
Potassium Pending
Chloride Pending
Carbon Dioxide Pending
BUN Pending
Creatinine Pending
Glucose Pending
Calcium Pending
Vital Signs:
Vital Signs
Temp Pulse Resp BP Pulse Ox
97.5 F 55 14 108/45 93
01/26/24 07:35 01/26/24 07:37 01/26/24 07:35 01/26/24 07:37 01/26/24 07:35
I&O
01/25/24 01/26/24 01/27/24
06:59 06:59 06:59
Intake Total 780 / 780 960 / 960
Output Total 1650 / 1650 1000 / 1000 800 / 800
Balance -870 / -870 -40 / -40 -800 / -800
--- NOTE | 2024-01-26 09:32 | W.DS.TRANS ---
Addendum entered and electronically signed by Rich Jarrett MD 01/26/24 16:19:
Dictation- [id number]
Original Note:
DC Summary - Rn Hedis
-
Discharge Instructions:
Discharge Diagnosis/Procedures Congestive heart failure status post cardiac
cath, diabetes, hypertension, high cholesterol,
anemia, glaucoma
Diet Low Cholesterol,2 Gram Sodium,Restrict fluids to
48 oz
Activity As tolerated
Driving Restrictions No driving for 24 hours
Bathing Restrictions None
Blood Work BMP in 5 days.
Specialty Instructions Weigh Daily
Instructions: *DCA Heart Failure Instructions
Stand-Alone Forms: DC Instructions- Cath/EP Lab
Changes to Home Medications: Yes
Discharge Medications:
DC Medications w/original date entered in [employer]
lisinopril 40 mg tablet 40 mg PO DAILY Blood pressure 07/01/14
amlodipine 10 mg tablet 10 mg PO DAILY Blood pressure 11/29/18
latanoprost 0.005 % eye drops 1 drp BOTH EYES HS Eye condition 08/24/20
acetaminophen 325 mg tablet (Tylenol) 650 mg PO Q6HPRN PRN mild pain 01/19/24
cyanocobalamin (vitamin B-12) 1,000 mcg tablet 1,000 mcg PO DAILY Supplement 01/19/24
atorvastatin 40 mg tablet 40 mg PO QPM High cholesterol #30 tabs 01/26/24
carvedilol 12.5 mg tablet 12.5 mg PO BID Heart disease/condition #60 tabs 01/26/24
dapagliflozin propanediol 10 mg tablet 10 mg PO DAILY Heart disease/condition #30 tabs 01/26/24
ferrous sulfate 325 mg (65 mg iron) tablet (FeroSul) 325 mg PO DAILY Supplement #30 tabs 01/26/24
furosemide 40 mg tablet (Lasix) 40 mg PO BID Fluid retention/Swelling #60 tabs 01/26/24
metformin 500 mg tablet,extended release 24 hr 1,000 mg (2 x 500 mg) PO BID AT 0800,1700 Diabetes #60 tabs 01/26/24
sitagliptin phosphate 50 mg tablet (Januvia) 50 mg PO DAILY Diabetes #30 tabs 01/26/24
Home Medication Changes
Metformin dose increased Solacutan is new
Lasix is new
Iron is new
Farxiga new
Coreg new
Dose of atorvastatin changed
Pending Results: No
--- NOTE | 2024-01-26 09:46 | PTCARENOTE ---
Assumed care of pt from night RN. Pt received awake and alert, Ox3. VSS, CM shows NSR 50-60's, POX 93 % on RA. Pt is mostly Romanian speaking, but language line utilized when specific instructions are needed. He denies any pain or discomfort.
Stat BNP obtained, but CX by hospitalist. Pt to start 40 mg this am as ordered. Glucophage to start this evening.
[2024-01-26] MEDS: LASIX IV (09:56)
[2024-01-26] MEDS: LASIX 40 MG PO (10:00)
[2024-01-26 11:20] VITALS: BP 121/42
[2024-01-26 12:04] LABS: Glucose - Point of Care 178 mg/dl (70-99)
[2024-01-26] MEDS: NOVOLOG FLEXPEN-LOW RESISTANCE 1 UNITS SC (12:05)
--- NOTE | 2024-01-26 14:25 | PTCARENOTE ---
All D/C info reviewed all questions answered. Pt D/C'd home with friends.
--- NOTE | 2024-01-29 13:43 | W.HF.CON ---
Heart Failure
- LV Function
Left ventricular function study result: LV Ejection fraction >40%
Ejection Fraction Percentage: 55-60
- ARNI
Patient already on ARNI: No
Heart Failure ARNI Not Indicated: LV Ejection Fraction >/= 40%
- ACEI/ARB
Patient already on ACEI/ARB: Yes
- Beta Anju
Patient already on Evidence Based Beta Anju: Yes
- Mineralocorticord Receptor Antagonist
Patient already on MRA: No
Heart Failure MRA Not Indicated: LV Ejection Fraction > 40%
- SGLT-2 Inhibitor
Patient already on SGLT-2 Inhibitor: Yes
- NYHA CHF Classification
NYHA CHF Classification Level: Class III - Symptoms w/ min exertion, interferes w/ nml daily activity
- ACC/AHA Stage
ACC/AHA Stage: Stage C: Symptomatic Heart Failure
== END 2024-01-26 14:10 | disposition home or self-care (01) | DRG 286 ==
LOC: IVU 21:33
PROVIDERS: Emergency Medicine; Internal Medicine Interventional Cardiology; Nurse Practitioner Adult Health; ADMITTING PHYSICIAN Hospitalist; ATTENDING PHYSICIAN Hospitalist; EMERGENCY PHYSICIAN Emergency Medicine; FAMILY PHYSICIAN Family Medicine; OTHER PHYSICIAN Internal Medicine Cardiovascular Disease
PROC: 4A023N8 Measurement of Cardiac Sampling and Pressure, Bilateral, Percutaneous Approach (ICD-10-PCS; 2024-01-24)
PROC: B2111ZZ Fluoroscopy of Multiple Coronary Arteries using Low Osmolar Contrast (ICD-10-PCS; 2024-01-24)
DX: I11.0 Hypertensive heart disease with heart failure (principal); I50.33 Acute on chronic diastolic (congestive) heart failure; I16.1 Hypertensive emergency; Z68.41 Body mass index [BMI] 40.0-44.9, adult; I5A Non-ischemic myocardial injury (non-traumatic); E78.00 Pure hypercholesterolemia, unspecified; G47.33 Obstructive sleep apnea (adult) (pediatric); I27.20 Pulmonary hypertension, unspecified; I25.10 Atherosclerotic heart disease of native coronary artery without angina pectoris; M10.9 Gout, unspecified; I44.7 Left bundle-branch block, unspecified; D64.9 Anemia, unspecified; G47.30 Sleep apnea, unspecified; H40.9 Unspecified glaucoma; M48.00 Spinal stenosis, site unspecified; E11.42 Type 2 diabetes mellitus with diabetic polyneuropathy; E11.65 Type 2 diabetes mellitus with hyperglycemia; E66.01 Morbid (severe) obesity due to excess calories; Z79.84 Long term (current) use of oral hypoglycemic drugs; Z85.46 Personal history of malignant neoplasm of prostate; Z90.79 Acquired absence of other genital organ(s)
CPT/HCPCS: 71045; 80048; 80053; 80061; 82607; 82728; 82962; 83036; 83540; 83550; 83735; 83880; 84443; 84484; 85025; 85027; 85610; 93005; 93306; 93460; 93970; 96365; 96366; 96375; 99152; 99153; 99285; C1894; Q9967

== ENCOUNTER → 2024-06-26 11:38 | Outpatient (REF) | payer OTHER, SELFPAY ==
[2024-06-26 12:19] LABS: % Basophils 0.6 % (0-2); % Eosinophils 2.1 % (0-6); % Immature Granulocytes 0.6 % (0-0.5); % Lymphocytes 20.2 % (20.5-51.1); % Monocytes 9.8 % (1.7-9.3); % Neutrophils 66.7 % (42.2-75.2); Absolute Basophils 0.1 10^3/uL (0-0.2); Absolute Eosinophils 0.2 10^3/uL (0-0.7); Absolute Immature Granulocytes 0.1 10^3/uL (0-0.05); Absolute Lymphocytes 1.8 10^3/uL (1.2-3.4); Absolute Monocytes 0.9 10^3/uL (0.1-0.6); Absolute Neutrophils 6.1 10^3/uL (1.4-6.5); Hematocrit 37.3 % (39.0-52.0); Hemoglobin 12.1 g/dL (13.0-18.0); Mean Corp Hgb Conc. 32.4 g/dL (33.0-37.0); Mean Corpuscular Volume 89.4 fL (80.0-94.0); Mean Platelet Volume 9.1 fL (7.4-10.4); Nucleated Red Blood Cells % 0 % (-); Platelet Count 213 10^3/uL (130-400); Red Blood Cell Count 4.17 10^6/uL (4.70-6.10); Red Cell Dist. Width 15.2 % (11.5-14.5); White Blood Cell Count 9.1 10^3/uL (4.8-10.8)
[2024-06-26 12:53] LABS: ALT (SGPT) 28 U/L (0-50); AST (SGOT) 28 U/L (17-59); Albumin 3.3 g/dl (3.5-5.0); Alkaline Phosphatase 114 U/L (38-126); Blood Urea Nitrogen 20 mg/dl (9-20); Carbon Dioxide 28 mmol/L (22-30); Chloride 111 mmol/L (98-107); Glucose 99 mg/dl (70-99); Iron 72 ug/dl (49-181); Potassium 4.1 mmol/L (3.5-5.1); Sodium 146 mmol/L (135-145); Total Bilirubin 0.3 mg/dl (0.2-1.3); Total Protein 6.4 g/dl (6.3-8.2); Uric Acid 4.4 mg/dl (3.5-8.5); eGFR > 60.00
[2024-06-26 13:02] LABS: Percent Saturation 23 % (20-50); Total Iron Binding Capacity 312 ug/dl (261-462)
[2024-06-26 13:16] LABS: TSH Reflex To Free T4 1.08 uIU/ml (0.47-4.68)
[2024-06-26 13:20] LABS: Ferritin 92.9 ng/ml (17.9-464.0)
[2024-06-26 13:35] LABS: Vitamin B12 > 1000 pg/ml (239-931)
[2024-06-28 13:48] LABS: Erythropoietin (EPO) 20 mU/mL (4-27)
[2024-06-28 18:42] LABS: PSA Total <0.1 ng/mL (0.0-4.0)
== END ==
LOC: REG 11:38
PROVIDERS: ATTENDING PHYSICIAN Family Medicine
DX: I10 Essential (primary) hypertension (principal)
CPT/HCPCS: 36415; 80053; 82607; 82668; 82728; 83540; 83550; 84153; 84154; 84443; 84550; 85025

== ENCOUNTER → 2024-08-05 11:40 | Outpatient (REF) | payer OTHER, SELFPAY | LOC: RAD 11:40 | PROVIDERS: ATTENDING PHYSICIAN Physician Assistant | DX: M54.16 Radiculopathy, lumbar region (principal) | CPT/HCPCS: 72131 ==

== ENCOUNTER → 2024-08-26 15:54 | Outpatient (REF) | payer OTHER, SELFPAY | LOC: RAD 15:54 | PROVIDERS: ATTENDING PHYSICIAN Family Medicine | DX: I10 Essential (primary) hypertension (principal) | CPT/HCPCS: 76775 ==

== ENCOUNTER 2024-10-09 11:51 | Emergency (ER) | payer OTHER, SELFPAY ==
[2024-10-09 11:53] VITALS: BP 198/76
[2024-10-09 12:04] VITALS: BMI 39.7
[2024-10-09 12:21] LABS: % Basophils 0.3 % (0-2); % Eosinophils 1.1 % (0-6); % Immature Granulocytes 1.3 % (0-0.5); % Lymphocytes 9.8 % (20.5-51.1); % Monocytes 5.8 % (1.7-9.3); % Neutrophils 81.7 % (42.2-75.2); Absolute Eosinophils 0.1 10^3/uL (0-0.7); Absolute Immature Granulocytes 0.2 10^3/uL (0-0.05); Absolute Lymphocytes 1.1 10^3/uL (1.2-3.4); Absolute Monocytes 0.7 10^3/uL (0.1-0.6); Absolute Neutrophils 9.5 10^3/uL (1.4-6.5); Hemoglobin 11.9 g/dL (13.0-18.0); Mean Corp Hgb Conc. 30.5 g/dL (33.0-37.0); Mean Corpuscular Hgb 27.2 pg (27.0-31.0); Mean Corpuscular Volume 89.2 fL (80.0-94.0); Mean Platelet Volume 9.5 fL (7.4-10.4); Nucleated Red Blood Cells % 0 % (-); Platelet Count 230 10^3/uL (130-400); Red Blood Cell Count 4.37 10^6/uL (4.70-6.10); Red Cell Dist. Width 16.4 % (11.5-14.5); White Blood Cell Count 11.6 10^3/uL (4.8-10.8)
[2024-10-09 12:22] LABS: Urine Albumin 1+ (Neg - Trace); Urine Bilirubin Negative (Negative); Urine Character Clear (Clear); Urine Color Yellow; Urine Glucose 3+ (Negative); Urine Ketone Negative (Negative); Urine Leukocyte Negative (Negative); Urine Nitrite Negative (Negative); Urine Occult Blood 1+ (Negative); Urine Specific Gravity 1.015 (<1.030); Urine Urobilinogen Negative (Neg - 1+); Urine pH 6.5 (5.0-9.0)
[2024-10-09 12:35] LABS: ALT (SGPT) 291 U/L (0-50); AST (SGOT) 193 U/L (17-59); Albumin 3.4 g/dl (3.5-5.0); Alkaline Phosphatase 155 U/L (38-126); Blood Urea Nitrogen 25 mg/dl (9-20); Calcium 8.1 mg/dl (8.4-10.2); Carbon Dioxide 26 mmol/L (22-30); Chloride 108 mmol/L (98-107); Estimated Creatinine Clearance 90 ml/min; Glucose 164 mg/dl (70-99); Potassium 3.6 mmol/L (3.5-5.1); Sodium 143 mmol/L (135-145); Total Bilirubin 0.5 mg/dl (0.2-1.3); Total Protein 6.4 g/dl (6.3-8.2); eGFR > 60.00
[2024-10-09 12:39] LABS: Urine Mucus Few
[2024-10-09 12:40] LABS: Urine Amorphous Seen; Urine Granular Cast 0-2 /LPF (0); Urine Hyaline Cast 0-2 /LPF (0-2)
[2024-10-09 12:41] LABS: Urine Red Blood Cell 0-2 /HPF (0-2)
[2024-10-09 12:42] LABS: Urine White Cell 0-2 /HPF (0-5)
[2024-10-09 12:46] LABS: Troponin I 0.033 ng/ml
--- NOTE | 2024-10-09 13:15 | ED.GENMED ---
History of Present Illness
General
Chief Complaint: Fainting/Passed Out
Source: patient
Exam Limitations: none
Time Seen by Provider: 10/09/24 11:52
Nursing documentation reviewed up to this point in time: agreed with
History of Present Illness
History of Present Illness:
74-year-old male hypertensive possibly diabetic heart failure presents with a syncopal event, at work felt dizzy nearly passed out, no chest pain or shortness of breath drinks alcohol not to excess non-smoker when asked states he has some mild upper
abdominal pain, no calf pain, no fever chills no vomiting
Past History
Past History
ED Past Medical History: None, Cancer, HTN, Hypercholesterolemia and NIDDM
ED Past Surgical History: Orthopedic
Social History
Tobacco: Non-smoker
Alcohol: Occasional
Drug: None
Personal:
Living: with family
Employment: Employed
Family History
Family History: Hypertension
Review of Systems
Review of Systems
All Other Systems: Not applicable
Constitutional: Denies fever or fatigue
EENT: Reports no symptoms
Respiratory: Reports no symptoms
Cardiac: Reports syncope; Denies chest pain or palpitations
ABD/GI: Reports abdominal pain
: Reports no symptoms
Musculoskeletal: Reports no symptoms
Neurological: Reports dizzy
Endocrine: Reports no symptoms
Hematologic/Lymphatic: Reports no symptoms
Psychiatric: Reports no symptoms
Phy Exam
Physical Exam
Physical Exam:
Physical Exam
General: no apparent distress, not acutely ill
Neck: No jaundice
Heart: s1/s2 regular rate and rhythm, no murmur. equal radial pulses.
Lungs: no acute respiratory distress. clear bilaterally
Abdomen: Minimal epigastric tenderness
Neuro: alert and oriented. no focal neurological deficits
Skin: no rash
Psychiatric: well kept. interactive and cooperative
Extremities: no edema.
Course
Orders/Labs/Results
Orders:
Orders
10/09/24 11:57
ECG [Electrocardiogram (*1)] Urgent
Reason for Study: Syncope
EKG- Treatment ONCE
10/09/24 12:12
Complete Blood Count/With Diff Urgent
Comprehensive Metabolic Panel Urgent
Lipase Urgent
Comment: ADD ON
NT-proBNP Urgent
Comment: ADD ON
Troponin I Urgent
Urinalysis Reflex To Culture Urgent
Date Specimen was Collected: 10/09/24
Time Specimen was Collected: 12:11
Urine Microscopic Reflex Cult Urgent
10/09/24 12:42
Add On- LAB Urgent
Tests Added?: lipase
10/09/24 13:17
CR Chest - 2 Views Urgent
Comment:
Reason For Exam: syncope
US Abdomen Complete/Upper Urgent
Comment:
Reason For Exam: LFTs up
10/09/24 13:34
Add On- LAB Urgent
Tests Added?: Pbnp
10/09/24 16:17
Furosemide [Lasix] 40 mg IV NOW STA
Potassium Chloride [KCl] 40 meq PO NOW STA
10/09/24 16:20
Electrocardiogram (*1) Urgent
Reason for Study: Shortness of Breath
EKG- Treatment ONCE
10/09/24 16:50
Troponin I Urgent
Abnormal Lab Results
10/09/24
12:12
WBC 11.6 H 10^3/uL
(4.8-10.8)
RBC 4.37 L 10^6/uL
(4.70-6.10)
Hgb 11.9 L g/dL
(13.0-18.0)
MCHC 30.5 L g/dL
(33.0-37.0)
RDW 16.4 H %
(11.5-14.5)
Abs Immat Gran (auto) 0.2 H 10^3/uL
(0-0.05)
Absolute Neuts (auto) 9.5 H 10^3/uL
(1.4-6.5)
Absolute Lymphs (auto) 1.1 L 10^3/uL
(1.2-3.4)
Absolute Monos (auto) 0.7 H 10^3/uL
(0.1-0.6)
Immature Gran % 1.3 H %
(0-0.5)
Neutrophils % 81.7 H %
(42.2-75.2)
Lymphocytes % 9.8 L %
(20.5-51.1)
Chloride 108 H mmol/L
(98-107)
BUN 25 H mg/dl
(9-20)
Glucose 164 H mg/dl
(70-99)
Calcium 8.1 L mg/dl
(8.4-10.2)
AST 193 H U/L
(17-59)
ALT 291 H U/L
(0-50)
Alkaline Phosphatase 155 H U/L
(38-126)
Albumin 3.4 L g/dl
(3.5-5.0)
Ur Occult Blood Reflex 1+ A
(Negative)
Urine Glucose 3+ A
(Negative)
Urine Albumin (Reflex) 1+ A
(Neg - Trace)
10/09/24 12:12
10/09/24 12:12
Vital Signs
Initial and Last Documented VS:
Initial Vital Signs
Temp Pulse Resp BP Pulse Ox
98.2 F 58 16 198/76 97
10/09/24 11:53 10/09/24 11:53 10/09/24 11:53 10/09/24 11:53 10/09/24 11:53
Last Documented Vital Signs
Temp Pulse Resp BP Pulse Ox
98.2 F 57 16 164/72 98
10/09/24 11:53 10/09/24 17:55 10/09/24 11:53 10/09/24 17:55 10/09/24 17:55
*Critical Care Note
Total Time (30-74mins, 75-104mins- exclusive of procedures): Not Applicable
Update Note
Update Note:
Update labs are noted chest x-ray noted reviewed with radiology proBNP noted, patient resting comfortably sitting upright not on oxygen states he been compliant with his diuretic dose was decreased somewhat recently will replete his potassium, give
him a dose of diuretic keep him out of work for few days referred to the heart failure hotline
ED Attending Note
-
Portions of this chart may have been created with voice recognition software.� Occasional wrong word or��sound alike� substitutions may have occurred due to the inherent limitations of voice recognition software.
Discharge Plan
Departure
Patient Disposition: Home (Routine Discharge)
Date of Disposition: 10/09/24
Time of Disposition: 16:20
Patient with high blood pressure during this ER visit?: Yes
Condition: Good
Discharge Problem:
Acute CHF
Instructions: Syncope (Fainting) (DC), Heart Failure ED, *[facility] Heart Failure Instructions, BLOOD PRESSURE
Prescriptions:
No Action
lisinopril 40 MG tablet
40 mg PO DAILY
amlodipine 10 MG tablet
10 mg PO DAILY
latanoprost 1 DROP drops
1 drp BOTH EYES HS
acetaminophen [Tylenol] 325 mg Tablet
650 mg PO Q6HPRN PRN (Reason: mild pain)
cyanocobalamin (vitamin B-12) 1,000 mcg Tablet
1,000 mcg PO DAILY
atorvastatin 40 mg Tablet
40 mg PO QPM Qty: 30 0RF
carvedilol 12.5 mg Tablet
12.5 mg PO BID Qty: 60 0RF
ferrous sulfate [FeroSul] 325 mg (65 mg iron) Tablet
325 mg PO DAILY Qty: 30 0RF
metformin 500 mg Tablet Extended Release 24 Hr
1,000 mg PO BID AT 0800,1700 Qty: 60 0RF
Januvia 50 mg Tablet
50 mg PO DAILY Qty: 30 0RF
dapagliflozin propanediol 10 mg Tablet
10 mg PO DAILY Qty: 30 0RF
furosemide [Lasix] 40 mg tablet
40 mg PO BID Qty: 60 0RF
Referrals:
Christine Sim MD [Family Provider] -
Madeleine Sanders DO [Active] - Next open appointment
Stand Alone Forms: Return to Work
Activity Restrictions/Additional Instructions:
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
Interventions
Interventions:
*Risk Screen - Suicide Last Done: 10/09/24 12:04
*General Assessment Last Done: 10/09/24 12:04
*Neglect/Abuse Screening Last Done: 10/09/24 12:04
ED- Fall Risk Assessment Last Done: 10/09/24 17:55
*ED COVID-19 Vaccine History Last Done: 10/09/24 17:55
*Nursing Disposition Last Done: 10/09/24 17:55
ED- Cardiac Assessment Last Done: 10/09/24 12:09
ED- Neurological Assessment Last Done: 10/09/24 12:09
Discharge Date and Time
Discharge Date/Time: 10/09/24 18:01
Print Language: [place]
[2024-10-09 13:20] LABS: Lipase 58 U/L (23-300)
[2024-10-09 14:10] LABS: NT-proBNP 821 pg/ml
[2024-10-09 16:33] VITALS: BP 164/68
[2024-10-09] MEDS: LASIX 40 MG IV (16:33)
[2024-10-09] MEDS: KCL 40 MEQ PO (16:34)
[2024-10-09 17:23] LABS: Troponin I 0.029 ng/ml
[2024-10-09 17:55] VITALS: BP 164/72
== END 2024-10-09 18:01 | disposition home or self-care (01) ==
LOC: EMR 11:51
PROVIDERS: EMERGENCY PHYSICIAN Emergency Medicine; FAMILY PHYSICIAN Family Medicine
DX: I50.9 Heart failure, unspecified (principal); I11.0 Hypertensive heart disease with heart failure; E11.9 Type 2 diabetes mellitus without complications; E78.00 Pure hypercholesterolemia, unspecified; Z82.49 Family history of ischemic heart disease and other diseases of the circulatory system
CPT/HCPCS: 99284; 96374; 71046; 76700; 80053; 81003; 81015; 83690; 83880; 84484; 85025; 93005

== ENCOUNTER 2024-11-10 21:21 | Emergency (ER) | payer OTHER, SELFPAY ==
[2024-11-10 21:29] VITALS: BP 177/81
[2024-11-10 21:50] LABS: % Basophils 0.7 % (0-2); % Eosinophils 3.5 % (0-6); % Immature Granulocytes 0.8 % (0-0.5); % Monocytes 8.8 % (1.7-9.3); % Neutrophils 70.2 % (42.2-75.2); Absolute Basophils 0.1 10^3/uL (0-0.2); Absolute Eosinophils 0.3 10^3/uL (0-0.7); Absolute Immature Granulocytes 0.1 10^3/uL (0-0.05); Absolute Lymphocytes 1.4 10^3/uL (1.2-3.4); Absolute Monocytes 0.8 10^3/uL (0.1-0.6); Absolute Neutrophils 6.2 10^3/uL (1.4-6.5); Hematocrit 38.1 % (39.0-52.0); Hemoglobin 11.9 g/dL (13.0-18.0); Mean Corp Hgb Conc. 31.2 g/dL (33.0-37.0); Mean Corpuscular Hgb 26.9 pg (27.0-31.0); Mean Corpuscular Volume 86.2 fL (80.0-94.0); Mean Platelet Volume 8.9 fL (7.4-10.4); Nucleated Red Blood Cells % 0 % (-); Platelet Count 255 10^3/uL (130-400); Red Blood Cell Count 4.42 10^6/uL (4.70-6.10); Red Cell Dist. Width 16.1 % (11.5-14.5); White Blood Cell Count 8.9 10^3/uL (4.8-10.8)
[2024-11-10 22:06] LABS: ALT (SGPT) 27 U/L (0-50); AST (SGOT) 29 U/L (17-59); Albumin 3.3 g/dl (3.5-5.0); Alkaline Phosphatase 143 U/L (38-126); Blood Urea Nitrogen 16 mg/dl (9-20); Calcium 9.3 mg/dl (8.4-10.2); Carbon Dioxide 29 mmol/L (22-30); Chloride 108 mmol/L (98-107); Glucose 144 mg/dl (70-99); Potassium 4.3 mmol/L (3.5-5.1); Sodium 142 mmol/L (135-145); Total Bilirubin 0.4 mg/dl (0.2-1.3); Total Protein 6.4 g/dl (6.3-8.2); eGFR > 60.00
[2024-11-10 22:18] VITALS: BMI 37.1
[2024-11-10 22:19] LABS: Troponin I 0.012 ng/ml
--- NOTE | 2024-11-10 22:26 | EDRN ---
Family report pt passed out last night and reportedly his tongue was sticking out and he could not speak, had a headache and dizziness. Pt was reportedly not able to speak for about 1 hour or get up. Pt admits he drank a little wine last night
'just one glass'. Pt did not have cp, nausea/vomiting, sob, fever/chills. Today, pt walking less but says he has chronic pain in his R knee down his leg for which he takes tramadol. Pt feels dizzy now. Pt does not use cane/walker. Pt has
generalized weakness. Pt does not check his blood sugars regularly but did check it two nights ago and it was 183. No visual/speech disturbance. Pt notes leg swelling that is chronic, no worse than usual. Normal appetite. Pt has 'a little'
headache now. Pt takes his medications regularly but took tonight's medications early. Family say swelling is worse than usual. Pt has been sleeping well, able to lay flat.
[2024-11-10 22:40] VITALS: BP 186/76
[2024-11-10 22:45] LABS: NT-proBNP 293 pg/ml
--- NOTE | 2024-11-10 22:48 | EDRN ---
No dizziness during ortho signs - pt adds he has had numbness at the corners of his lips for past few months and sometimes when he eats it causes him to bite his lip/tongue.
[2024-11-10 22:51] VITALS: BP 177/73; BP 186/71; BP 188/65; PULSE 62; PULSE 64; PULSE 67
--- NOTE | 2024-11-10 22:58 | ED.GENMED ---
History of Present Illness
<Carrington Reid PA-C - Last Filed: 11/11/24 00:14>
General
Chief Complaint: Fainting/Passed Out
Source: patient
Exam Limitations: none
Time Seen by Provider: 11/10/24 22:16
History of Present Illness
History of Present Illness:
74-year-old male [id number] diabetic with history of CHF presents for evaluation of what family describes as passing out episode last evening. He was walking and describes a dizzy sensation and he fell to the ground. His family noticed
that he passed out. He then came to try to get up but was unable to get up. They state his tongue was sticking out of his mouth and was unable to speak for about an hour. Since then and throughout the course of the day today the patient states he
feels tired and occasionally dizzy. He denies headache chest pain shortness of breath. He does not routinely check his blood sugars. There has been no vomiting. They note ongoing swelling to the legs.
Past History
<Carrington Reid PA-C - Last Filed: 11/11/24 00:14>
Past History
ED Past Medical History: None, Cancer, HTN, Hypercholesterolemia and NIDDM
ED Past Surgical History: Orthopedic
Social History
Tobacco: Non-smoker
Alcohol: Occasional
Drug: None
Personal:
Living: with family
Employment: Employed
Family History
Family History: Hypertension
Phy Exam
<Carrington Reid PA-C - Last Filed: 11/11/24 00:14>
Physical Exam
Physical Exam:
General: Well-appearing male no acute respiratory distress
HEENT: Normocephalic atraumatic face is symmetric mucosa moist neck is supple
Heart: Regular rate and rhythm no murmurs
Lungs: Clear no wheeze
Abdomen is soft nontender nondistended
Neurologic exam: Alert no facial asymmetry no drift finger-nose [id number] intact no slurred speech
Extremities: Edema noted bilateral lower extremities
Course
<Carrington Reid PA-C - Last Filed: 11/11/24 00:14>
Orders/Labs/Results
Orders:
Orders
11/10/24
CR Chest - 2 Views Urgent
Comment:
Reason For Exam: weakness
11/10/24 21:22
Electrocardiogram (*1) Urgent
Reason for Study: Chest Pain
EKG- Treatment ONCE
11/10/24 21:41
Complete Blood Count/With Diff Urgent
Comprehensive Metabolic Panel Urgent
NT-proBNP Urgent
Comment: ADD ON
Troponin I Urgent
11/10/24 22:16
Add On- LAB Urgent
Tests Added?: [id number]
11/10/24 22:36
CT Head W/o Iv Contrast Urgent
Comment:
Reason For Exam: weakness
Orthostatic VS- Treatment ONCE
11/10/24 23:31
COVID-19 Antigen Urgent
Source: Nasal Swab
Influenza A+B Rapid Molecular Urgent
SHENA Source: Nasal Swab
Specimen Description:
11/10/24 23:38
Urinalysis Reflex To Culture Urgent
Date Specimen was Collected: 11/10/24
Time Specimen was Collected: 23:37
Urine Microscopic Reflex Cult Urgent
Abnormal Lab Results
11/10/24 11/10/24
21:41 23:38
RBC 4.42 L 10^6/uL
(4.70-6.10)
Hgb 11.9 L g/dL
(13.0-18.0)
Hct 38.1 L %
(39.0-52.0)
MCH 26.9 L pg
(27.0-31.0)
MCHC 31.2 L g/dL
(33.0-37.0)
RDW 16.1 H %
(11.5-14.5)
Abs Immat Gran (auto) 0.1 H 10^3/uL
(0-0.05)
Absolute Monos (auto) 0.8 H 10^3/uL
(0.1-0.6)
Immature Gran % 0.8 H %
(0-0.5)
Lymphocytes % 16.0 L %
(20.5-51.1)
Chloride 108 H mmol/L
(98-107)
Glucose 144 H mg/dl
(70-99)
Alkaline Phosphatase 143 H U/L
(38-126)
Albumin 3.3 L g/dl
(3.5-5.0)
Urine Glucose 4+ A
(Negative)
Urine Albumin (Reflex) 3+ A
(Neg - Trace)
11/10/24 21:41
11/10/24 21:41
Vital Signs
Initial and Last Documented VS:
Initial Vital Signs
Temp Pulse Resp BP Pulse Ox
98.0 F 69 17 177/81 98
11/10/24 21:29 11/10/24 21:29 11/10/24 21:29 11/10/24 21:29 11/10/24 21:29
Last Documented Vital Signs
Temp Pulse Resp BP Pulse Ox
98.0 F 64 17 166/70 96
11/10/24 21:29 11/10/24 23:00 11/10/24 23:00 11/10/24 23:00 11/10/24 23:00
<Christiano Castro, DO - Last Filed: 11/11/24 00:26>
Orders/Labs/Results
Orders:
Orders
11/10/24
CR Chest - 2 Views Urgent
Comment:
Reason For Exam: weakness
11/10/24 21:22
Electrocardiogram (*1) Urgent
Reason for Study: Chest Pain
EKG- Treatment ONCE
11/10/24 21:41
Complete Blood Count/With Diff Urgent
Comprehensive Metabolic Panel Urgent
NT-proBNP Urgent
Comment: ADD ON
Troponin I Urgent
11/10/24 22:16
Add On- LAB Urgent
Tests Added?: [id number]
11/10/24 22:36
CT Head W/o Iv Contrast Urgent
Comment:
Reason For Exam: weakness
Orthostatic VS- Treatment ONCE
11/10/24 23:31
COVID-19 Antigen Urgent
Source: Nasal Swab
Influenza A+B Rapid Molecular Urgent
SHENA Source: Nasal Swab
Specimen Description:
11/10/24 23:38
Urinalysis Reflex To Culture Urgent
Date Specimen was Collected: 11/10/24
Time Specimen was Collected: 23:37
Urine Microscopic Reflex Cult Urgent
Abnormal Lab Results
11/10/24 11/10/24
21:41 23:38
RBC 4.42 L 10^6/uL
(4.70-6.10)
Hgb 11.9 L g/dL
(13.0-18.0)
Hct 38.1 L %
(39.0-52.0)
MCH 26.9 L pg
(27.0-31.0)
MCHC 31.2 L g/dL
(33.0-37.0)
RDW 16.1 H %
(11.5-14.5)
Abs Immat Gran (auto) 0.1 H 10^3/uL
(0-0.05)
Absolute Monos (auto) 0.8 H 10^3/uL
(0.1-0.6)
Immature Gran % 0.8 H %
(0-0.5)
Lymphocytes % 16.0 L %
(20.5-51.1)
Chloride 108 H mmol/L
(98-107)
Glucose 144 H mg/dl
(70-99)
Alkaline Phosphatase 143 H U/L
(38-126)
Albumin 3.3 L g/dl
(3.5-5.0)
Urine Glucose 4+ A
(Negative)
Urine Albumin (Reflex) 3+ A
(Neg - Trace)
11/10/24 21:41
11/10/24 21:41
Vital Signs
Initial and Last Documented VS:
Initial Vital Signs
Temp Pulse Resp BP Pulse Ox
98.0 F 69 17 177/81 98
11/10/24 21:29 11/10/24 21:29 11/10/24 21:29 11/10/24 21:29 11/10/24 21:29
Last Documented Vital Signs
Temp Pulse Resp BP Pulse Ox
98.0 F 64 17 166/70 96
11/10/24 21:29 11/10/24 23:00 11/10/24 23:00 11/10/24 23:00 11/10/24 23:00
<Carrington Reid PA-C - Last Filed: 11/11/24 00:14>
MDM/Problems Addressed
Differential Diagnosis Includes:
Syncope vs seizure vs TIA vs arrhythmia.
CT head, labs, ekg, orthostatics, CXR, COVID/FLU tests ordered.
<Carrington Reid PA-C - Last Filed: 11/11/24 00:14>
*Critical Care Note
Total Time (30-74mins, 75-104mins- exclusive of procedures): Not Applicable
<Carrington Reid PA-C - Last Filed: 11/11/24 00:14>
Update Note
Update Note:
CT head shows no obvious acute finding. X-ray of the chest is clear COVID and flu test were negative. Discussed with emergency room attending. Potential syncope versus alcohol intoxication versus TIA however no focal findings on exam currently.
No indication for emergent admission. Family comfortable with discharge. Stable for discharge
ED Attending Note
<Carrington Reid PA-C - Last Filed: 11/11/24 00:14>
-
Portions of this chart may have been created with voice recognition software.� Occasional wrong word or��sound alike� substitutions may have occurred due to the inherent limitations of voice recognition software.
<Christiano Castro, - Last Filed: 11/11/24 00:26>
ED Attending Note
Patient seen and examined by attending physician: Yes
ED Attending Note:
I have reviewed and agree with history and treatment bryanna Reid. My exam revealed 74-year-old male in no acute distress. Lungs clear. Alert and oriented x 3. Do not suspect ACS, PE CHF or pneumonia. CT head no acute findings.
Suspect episode was due to alcohol use. Doubt seizure or TIA. Discharged to follow-up with primary care. Return precautions given.
Discharge Plan
Departure
Patient Disposition: Home (Routine Discharge)
Date of Disposition: 11/11/24
Time of Disposition: 00:11
Patient with high blood pressure during this ER visit?: No
Discharge Problem:
Syncope
Instructions: Syncope (Fainting) (DC)
Prescriptions:
No Action
lisinopril 40 MG tablet
40 mg PO DAILY
amlodipine 10 MG tablet
10 mg PO DAILY
latanoprost 1 DROP drops
1 drp BOTH EYES HS
acetaminophen [Tylenol] 325 mg Tablet
650 mg PO Q6HPRN PRN (Reason: mild pain)
atorvastatin 40 mg Tablet
40 mg PO QPM Qty: 30 0RF
carvedilol 12.5 mg Tablet
12.5 mg PO BID Qty: 60 0RF
ferrous sulfate [FeroSul] 325 mg (65 mg iron) Tablet
325 mg PO DAILY Qty: 30 0RF
furosemide [Lasix] 40 mg tablet
40 mg PO BID Qty: 60 0RF
tramadol 50 mg Tablet
50 mg PO Q8H PRN (Reason: leg pain)
dapagliflozin propanediol [Farxiga] 10 mg Tablet
10 mg PO DAILY
metformin 500 mg tablet extended release 24 hr
1,000 mg PO BID
Referrals:
UNKNOWN - PT NOT,INTERVIEWE [Family Provider] -
Activity Restrictions/Additional Instructions:
Please return here for worsening symptoms. Follow-up with your doctor otherwise
Interventions
Interventions:
*Risk Screen - Suicide Last Done: 11/10/24 21:30
*General Assessment Last Done: 11/10/24 21:30
*Neglect/Abuse Screening Last Done: 11/10/24 21:30
ED- Fall Risk Assessment Last Done: 11/10/24 22:51
*ED COVID-19 Vaccine History Last Done: 11/10/24 21:30
ED- Cardiac Assessment Last Done: 11/10/24 22:43
ED- Neurological Assessment Last Done: 11/10/24 22:43
Discharge Date and Time
Print Language: P[place]ST[place]
[2024-11-10 23:00] VITALS: BP 166/70
[2024-11-10 23:52] LABS: Urine Albumin 3+ (Neg - Trace); Urine Bilirubin Negative (Negative); Urine Character Clear (Clear); Urine Color Yellow; Urine Glucose 4+ (Negative); Urine Ketone Negative (Negative); Urine Leukocyte Negative (Negative); Urine Nitrite Negative (Negative); Urine Occult Blood Negative (Negative); Urine Urobilinogen Negative (Neg - 1+)
[2024-11-10 23:58] LABS: COVID-19 Antigen Negative (Negative)
[2024-11-11] VITALS: BP 164/62
[2024-11-11 01:11] LABS: Urine Bacteria Few (Negative)
== END 2024-11-11 00:45 | disposition home or self-care (01) ==
LOC: EMR 21:21
PROVIDERS: Emergency Medicine; Physician Assistant; EMERGENCY PHYSICIAN Emergency Medicine
DX: R55 Syncope and collapse (principal); E11.9 Type 2 diabetes mellitus without complications; R60.0 Localized edema; E78.00 Pure hypercholesterolemia, unspecified; I11.0 Hypertensive heart disease with heart failure; I50.9 Heart failure, unspecified; Z11.52 Encounter for screening for COVID-19
CPT/HCPCS: 99285; 70450; 71046; 80053; 81003; 81015; 83880; 84484; 85025; 87502; 87811; 93005